=== PATIENT | female | born 1970 | race African-American/Black ===

== ENCOUNTER 2020-05-12 13:13 | Outpatient (CLI) | payer MEDICARE, OTHER, SELFPAY ==
[2020-05-12 15:08] LABS: Basophils Absolute Auto 0.1 K/mm3 (0.0-0.1); Basophils Percent Auto 0.7 % (0.2-1.2); Eosinophils Absolute Auto 0.1 K/mm3 (0-0.3); Eosinophils Percent Auto 1.1 % (0-4.4); Hematocrit 40.7 % (37.0-47.0); Hemoglobin 12.8 g/dL (12.0-15.0); Immature Granulocyte Absolute 0.03 K/mm3 (0.00-0.031); Immature Granulocyte Percent A 0.4 % (0-0.5); Mean Corpuscular HGB Conc 31.4 g/dl (32-36); Mean Corpuscular Hemoglobin 31.1 pg (26-34); Mean Corpuscular Volume 98.8 fl (80-100); Mean Platelet Volume 10.7 fl (7.4-10.4); Monocytes Absolute Auto 0.3 K/mm3 (0.1-0.6); Monocytes Percent Auto 4.1 % (2.6-8.5); Neutrophils Absolute Auto 3.1 K/mm3 (1.3-6.7); Neutrophils Percent Auto 42.7 % (45.5-73.1); Platelet Count Result 270 k/mm3 (150-375); Red Blood Count 4.12 M/mm3 (4.2-5.4); Red Cell Distribution Width 13.1 % (11.5-14.5); White Blood Count 7.3 K/mm3 (4.5-10.0)
[2020-05-12 15:14] LABS: Iron 145 ug/dL (37-170)
[2020-05-12 15:16] LABS: Alanine Aminotransferase 9 U/L (4-35); Albumin Level 3.9 g/dL (3.5-5.1); Alkaline Phosphatase 92 U/L (38-126); Anion Gap 3 mmol/L (8-16); Aspartate Amino Transferase 19 U/L (14-36); Bilirubin,Total 0.4 mg/dL (0.2-1.3); Blood Urea Nitrogen 12 mg/dL (7-17); Calcium 9.1 mg/dL (8.4-10.2); Carbon Dioxide 30 mmol/L (22-30); Chloride 107 mmol/L (98-107); Estimated Glomerular Filt Rate > 60; Glucose 97 mg/dL (65-105); Sodium 140 mmol/L (137-145)
[2020-05-12 15:24] LABS: Percent Iron Saturation 47 % (20-50)
[2020-05-12 16:22] LABS: Folic Acid 7.4 ng/mL (2.76->20)
== END 2020-05-12 13:14 | disposition home or self-care (01) ==
LOC: ANHLAB 13:17
PROVIDERS: PCP Emergency Medicine; Visit Provider Internal Medicine Hematology & Oncology
DX: D64.9 Anemia, unspecified (principal)
CPT/HCPCS: 36415; 80053; 82607; 82728; 82746; 83540; 83550; 84443; 85025

== ENCOUNTER → 2021-09-21 11:37 | Outpatient (CLI) | payer MEDICARE, SELFPAY ==
--- NOTE | ~2021-09-21 | XR_ITS ---
XR hip RT min 2V 09/21/2021 12:18 INDICATION: Right inguinal pain PROCEDURE: 3 views right hip COMPARISON: 07/23/2009 FINDINGS: Fracture, dislocation or subluxation is not identified. No significant joint space narrowin g. The soft tissues appear within normal limits. No foreign bodies are identified. IMPRESSION: 1: No significant bone or joint abnormality. Reviewed, dictated and finalized at location A.
--- NOTE | ~2021-09-21 | XR_ITS ---
XR femur RT min 2V DATE: 09/21/2021 12:18 INDICATION: Right inguinal pain TECHNIQUE: AP and lateral views of the femur COMPARISON: None FINDINGS: Mild right hip osteoarthritis. Mild tricompartment osteoarthritis at the right knee joint. Mild superior pole patellar enthesopathy at the quadriceps tendon insertion. No fracture or dislocation, periosteal reaction or bone destruction. IMPRESSION: Mild right hip and knee osteoarthritis Reviewed, dictated and finalized at location B.
--- NOTE | ~2021-09-21 | XR_ITS ---
XR lumbar spine 2-3V DATE: 09/21/2021 12:18 INDICATION: Right inguinal pain TECHNIQUE: AP, lateral, coned lateral lumbosacral views COMPARISON: None FINDINGS: Normal alignment of the lumbar spine except for slight anterolisthesis at L4-5 due to degen erative change at the apophyseal joints. There is bilateral severe degenerative disc disease at L5-S1 and mild to moderate degenerative disc d isease at the remainder of the lumbar spine. Included lower thoracic and lumbar pedicles are intact. No fracture or bone destruction. The sacroili ac joints are intact. IMPRESSION: Multilevel degenerative disc disease, most prominent at L5-S1 Degenerative changes apophyseal joints with associated minimal grade 1 anterolisthesis at L4-5 Reviewed, dictated and finalized at location B. IMPRESSION: Multilevel degenerative disc disease, most prominent at L5-S1 Degenerative changes apophyseal joints with associated minimal grade 1 anteroli sthesis at L4-5
== END ==
PROVIDERS: PCP Emergency Medicine; Visit Provider Emergency Medicine
DX: R10.31 Right lower quadrant pain (principal); M51.37 Other intervertebral disc degeneration, lumbosacral region; M43.16 Spondylolisthesis, lumbar region; M16.11 Unilateral primary osteoarthritis, right hip; M17.11 Unilateral primary osteoarthritis, right knee
CPT/HCPCS: 72100; 73502; 73552

== ENCOUNTER 2022-05-22 18:39 | Emergency (ER) | payer MEDICARE, MEDICAID, SELFPAY ==
--- NOTE | 2022-05-22 18:52 | ED.DENTAL ---
HPI - Dental/Oral General Chief complaint: Dental/Oral Stated complaint: Dental Pain Source: patient and RN notes reviewed History of Present Illness HPI Narrative: 52 yo F presents to urgent care with complaints of left lower jaw swelling and pain. Pt states she began feeling something in the area a few days ago but this morning woke up with worsening pain and swelling. pt states the swelling went down significantly today but still has some. Pt reports gargling with peroxide and warm water. Reports teeth issues in the area. Denies any fevers, chills, chest pain, shortness of breath, or vomiting. Some parts of this dictation were generated by voice recognition software and may contain typographical and/or grammatical inaccuracies. Related Data Home Medications Medication Instructions Recorded Confirmed diclofenac sodium 05/22/22 05/22/22 losartan 50 mg tablet mg 05/22/22 rosuvastatin 10 mg tablet mg 05/22/22 topiramate 25 mg tablet mg 05/22/22 Allergies Allergy/AdvReac Type Severity Reaction Status Date / Time Contrast Media Allergy Intermediate Swelling Uncoded 05/22/22 18:58 Review of Systems Review of Systems: Pertinent positives and pertinent negatives per HPI. PMFSH Comments At the time of my signature, I reviewed and agree with the nursing past medical, surgical, social, and family history. There is no relevant family history pertinent to the patient complaint. Exam Narrative: GENERAL: This is a well-nourished, well-developed patient, in no apparent distress. HEAD: normocephalic, atraumatic. EYES: Sclera clear/white. Vision is grossly intact. EARS: External ears normal, auditory canals clear and without drainage. Hearing grossly intact. NOSE: External nose normal with no obvious nasal discharge, nares without redness, no rhinorrhea. THROAT: Mucous membranes moist, posterior pharynx clear. MOUTH: Left lower gum swelling. Left lower jaw swelling. NECK: Neck supple, non-tender without lymphadenopathy, masses or thyromegaly. CARDIOVASCULAR: Regular rate RESPIRATORY: No respiratory distress. SKIN: warm, intact with no suspicious lesions or rash, good texture and turgor. NEURO: awake, alert, and oriented to person, place and time. There were no obvious focal neurologic abnormalities. Course Course Level of Care: Express Care Visit Vital Signs Vital signs: Vital Signs Temperature 97.9 F 05/22/22 18:53 Pulse Rate 80 05/22/22 18:53 Respiratory Rate 14 05/22/22 18:53 Blood Pressure 136/79 05/22/22 18:53 Pulse Oximetry 100 05/22/22 18:53 Oxygen Delivery Room Air 05/22/22 18:53 Temperature 97.9 F 05/22/22 18:53 Pulse Rate 80 05/22/22 18:53 Respiratory Rate 14 05/22/22 18:53 Blood Pressure 136/79 05/22/22 18:53 Pulse Oximetry 100 05/22/22 18:53 Oxygen Delivery Room Air 05/22/22 18:53 Reviewed MDM - Dental/Oral MDM Narrative Medical decision making narrative: Take antibiotic until it's gone. Brushing teeth at least twice daily with gentle flossing. Avoid temperature extremes---when you eat. Salt gargle to rinse your mouth after every meal You may apply ice to the face to reduce pain/swelling. For pain, you may take: Tylenol 650-1000mg by mouth every 4-6 hours. Do not exceed 4000mg in 24 hours. Advil (Ibuprofen) 600 mg by mouth every 6 hours. Do not exceed 2400mg in 24 hours. Also, recommend regular dental check up one-two times a year to prevent tooth decay and other periodontal disease. Follow-up with the dentist as soon as possible--see the list provided Pt was instructed to go straight to the ER with any new or worsening symptoms. Differential Diagnosis Differential diagnosis: Likely dental caries, toothache and dental abscess Critical Care Time Critical Care Time Critical Care Time: No Discharge Plan Discharge Clinical Impression: Dental abscess Patient Disposition: Home, Self-Care Condition: Stable Instruct
[2022-05-22 18:53] VITALS: BP 136/79; PULSE 80; RESP 14; TEMP 36.6; O2SAT 100
== END 2022-05-22 19:04 | disposition home or self-care (01) ==
PROVIDERS: Emergency Provider Nurse Practitioner Family; PCP Emergency Medicine
DX: K04.7 Periapical abscess without sinus (principal)
CPT/HCPCS: 99213; G0463

== ENCOUNTER 2023-10-05 15:45 | Outpatient (CLI) | payer MEDICARE, MEDICAID, SELFPAY ==
[2023-10-05 16:09] LABS: Basophils Percent Auto 0.5 % (0.2-1.2); Eosinophils Absolute Auto 0.1 K/mm3 (0-0.3); Eosinophils Percent Auto 1.5 % (0-4.4); Hematocrit 38.3 % (37.0-47.0); Hemoglobin 11.9 g/dL (12.0-15.0); Immature Granulocyte Absolute 0.01 K/mm3 (0.00-0.031); Immature Granulocyte Percent A 0.2 % (0-0.5); Lymphocytes Percent Auto 39.3 % (18.3-44.2); Mean Corpuscular HGB Conc 31.1 g/dl (32-36); Mean Corpuscular Hemoglobin 30.8 pg (26-34); Mean Corpuscular Volume 99.2 fl (80-100); Mean Platelet Volume 9.3 fl (7.4-10.4); Monocytes Absolute Auto 0.3 K/mm3 (0.1-0.6); Monocytes Percent Auto 4.1 % (2.6-8.5); Neutrophils Absolute Auto 3.3 K/mm3 (1.3-6.7); Neutrophils Percent Auto 54.4 % (45.5-73.1); Platelet Count Result 218 k/mm3 (150-375); Red Blood Count 3.86 M/mm3 (4.2-5.4); White Blood Count 6.1 K/mm3 (4.5-10.0)
[2023-10-05 19:54] LABS: Iron 137 ug/dL (37-170)
[2023-10-05 20:04] LABS: Percent Iron Saturation 42 % (20-50)
[2023-10-05 21:34] LABS: Alanine Aminotransferase 36 U/L (6-35); Albumin Level 4.4 g/dL (3.5-5.1); Alkaline Phosphatase 121 U/L (38-126); Anion Gap 8 mmol/L (4-12); Aspartate Amino Transferase 48 U/L (14-36); Bilirubin,Total 0.3 mg/dL (0.2-1.3); Blood Urea Nitrogen 23 mg/dL (7-17); Calcium 9.3 mg/dL (8.4-10.2); Carbon Dioxide 27 mmol/L (22-30); Chloride 107 mmol/L (98-107); Estimated Glomerular Filt Rate > 60; Glucose 82 mg/dL (65-110); Lactate Dehydrogenase 238 U/L (120-246); Sodium 142 mmol/L (137-145)
[2023-10-05 22:39] LABS: Folic Acid 7.1 ng/mL (2.76->20)
[2023-10-06 23:48] LABS: Hemoglobin 12.4 g/dL (11.7-15.5); MCV 97.5 fL (80.0-100.0); RDW 11.1 % (11.0-15.0)
[2023-10-08 03:39] LABS: Methylmalonic Acid 248 nmol/L (55-335)
[2023-10-08 13:34] LABS: Soluble Transferrin Receptor 1.14 mg/L (0.76-1.76)
== END 2023-10-05 15:46 | disposition home or self-care (01) ==
LOC: ANHLAB 15:48
PROVIDERS: Nurse Practitioner Family; PCP Emergency Medicine; Visit Provider Internal Medicine Hematology & Oncology
DX: D57.3 Sickle-cell trait (principal); D50.9 Iron deficiency anemia, unspecified
CPT/HCPCS: 36415; 80053; 82607; 82728; 82746; 83021; 83540; 83550; 83615; 83921; 84238; 85025; 85660

== ENCOUNTER 2024-05-03 13:19 | Outpatient (CLI) | payer MEDICARE, MEDICAID, SELFPAY ==
[2024-05-03 13:36] LABS: Basophils Percent Auto 0.4 % (0.2-1.2); Eosinophils Percent Auto 0.5 % (0-4.4); Hematocrit 38.7 % (37.0-47.0); Hemoglobin 12.2 g/dL (12.0-15.0); Immature Granulocyte Absolute 0.02 K/mm3 (0.00-0.031); Immature Granulocyte Percent A 0.2 % (0-0.5); Lymphocytes Absolute Auto 2.28 K/mm3 (0.9-3.2); Lymphocytes Percent Auto 27.8 % (18.3-44.2); Mean Corpuscular HGB Conc 31.5 g/dl (32-36); Mean Corpuscular Hemoglobin 31.1 pg (26-34); Mean Corpuscular Volume 98.7 fl (80-100); Monocytes Absolute Auto 0.3 K/mm3 (0.1-0.6); Monocytes Percent Auto 3.5 % (2.6-8.5); Neutrophils Absolute Auto 5.5 K/mm3 (1.3-6.7); Neutrophils Percent Auto 67.6 % (45.5-73.1); Platelet Count Result 273 k/mm3 (150-375); Red Blood Count 3.92 M/mm3 (4.2-5.4); Red Cell Distribution Width 13.3 % (11.5-14.5); White Blood Count 8.2 K/mm3 (4.5-10.0)
--- OUTSIDE RECORDS SUMMARY | 2024-05-03 14:55 | XMS_ITS | Encounter Summary ---
Author Organization [facility] Care Team Providers Care Ux Developer Name Role Phone Fabrizio BINGHAM MD, Manolo Villaseñor Primary Care [facility] er Von Long MD Primary Care Provider [phone] Keke Guzman RN Unavailable Unavailab Alexsandra Serra RN Unavailable Dorcas kristailadaniel Dinh II, MD, John Marshall Primary Care [facility] er Alexsandra Orozco RN Unavailable Dorcas Von Branham MD Primary Care Provider [phone] Encounter Details Date Type Department Care Team (Latest Contact Info) Description 04/21/2015 Orders Only [facility]INCON[facility] ProviderRoberth MD [address] [place] [id number] Social History Tobacco Use Types Packs/Day Years Used Date Smoking Tobacco: Never Assessed Comments Unknown Sex and Gender Information Value Date Recorded Sex Assigned at Not on file Legal Sex Female 1:27 PM [employer]ATCH[employer] WORK[employer] Gender Identity Not on file Sexual Orientation Not on file documented as of this encounter Plan of Treatment Not on file documented as of this encounter Procedures Procedure Name Priority Date/Time Associated Diagnosis Comments SCAN - LABS 12/24/2015 12:00 AM CDT CARDIOLOGY REPORT 12/24/2015 12: 00 AM CDT documented in this encounter Results * SCAN - LABS (12/24/2015 12:00 AM CDT) Narrative 12/24/2015 12:00 AM CDT Ordered by an unspecified provider. us Historical Provider Final Res ult * CARDIOLOGY REPORT (12/24/2015 12:00 AM CDT) Anatomical Region Laterality Modality Other Narrative 12/24/2015 12:00 AM CDT Ordered by an unspecified provider. us Historical Provider [facility] PROCE LAWANDA Final Result documented in this encounter Visit Diagnoses Not on filedocumented in this encounter Care Teams Ux Developer Relationship Specialty Start Date End Date Manolo Dinh II, MD PCP - General 05/21/16 09/20/16 Von Long MD PCP - General 09/21/16 06/19/17 Manolo Dinh II, MD PCP - General 06/20/17 02/08/19 Von Long MD PCP - General 02/09/19 Keke Guzman RN Registered Nurse 02/10/17 Alexsandra Orozco, RN Registered Nurse 05/11/17 Alexsandra Orozco, RN Registered Nurse 08/09/17 documented as of this encounter
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
--- OUTSIDE RECORDS SUMMARY | 2024-05-03 14:55 | XMS_ITS | Patient Health Summary ---
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 guidance, a 22-gauge 3.5 spinal needle was inserted into the space posterior to the right C2-3 facet. Once the needle was against the bone extravascular positioning was confirmed by aspiration. Then 3 mL solution was injected into the joint space containing 2 mL of Betamethasone and 1 mL of Bupivacaine 0.75%. The needle was removed, and a sterile dressing was applied. The right greater and lesser occipital nerves were identified by palpation and 1 mL of solution containing a mixture of betamethasone and bupivacaine 0.75% were injected around both these nerves with a 25-gauge needle. The left greater and lesser occipital nerves were identified by palpation and 1 mL of solution containing a mixture of betamethasone and bupivacaine 0.75% were injected around both these nerves with a 25-gauge needle. The patient tolerated the procedure well. The patient was transferred to the holding area in stable condition. Procedure Note Karo Christiansen MD - 05/25/2017 History: 47-year-old female with history of bilateral occipital headaches.Here for injection of bilateral C2-3 facet joints, bilateral greater andlesser occipital nerves. Operators: 1. Dr. Karo Christiansen, Attending Physician 2. Dr. Simpson, IR fellow Anesthesia: Local anesthesia - 5 mL of 1% Lidocaine. Procedure: 1. Fluoroscopic-guided therapeutic facet injection at right C2-3. 2. Fluoroscopic-guided therapeutic facet injection at left C2-3. 3. Bilateral therapeutic greater occipital nerve injection. 4. Bilateral therapeutic left occipital nerve injection. Start time: 3:18 PM End Time: 3:50 PM Fluoroscopy time: 5 minutes Contrast: None. Procedure in detail: The procedure and possible complications wereexplained to the patient in detail, and informed consent was obtained. The patient was placed prone on the angiographic table. A energy efficiency finance manager film ofthe lateral cervical spine was obtained, it demonstrated at least partialfusion of the C2-3 facet joints. An appropriate percutaneous entry sitewas marked on the skin. The skin around the region was prepped and draped in a sterile fashion. Localanesthesia was provided by the injection with 1% Lidocaine. Under intermittent fluoroscopic guidance, a 22-gauge 3.5 spinal needlewas inserted into the space posterior to the left C2-3 facet. Once theneedle was against the bone extravascular positioning was confirmed byaspiration. Then 3 mL solution was injected into the joint space containing 2 mL of Betamethasone and 1 mL ofBupivacaine 0.75%. The needle was removed, and a sterile dressing wasapplied. Under intermittent fluoroscopic guidance, a 22-gauge 3.5 spinal needlewas inserted into the space posterior to the right C2-3 facet. Once theneedle was against the bone extravascular positioning was confirmed byaspiration. Then 3 mL solution was injected into the joint space containing 2 mL of Betamethasone and 1 mL ofBupivacaine 0.75%. The needle was removed, and a sterile dressing wasapplied. The right greater and lesser occipital nerves were identified by palpationand 1 mL of solution containing a mixture of betamethasone and bupivacaine0.75% were injected around both these nerves with a 25-gauge needle. The left greater and lesser occipital nerves were identified by palpationand 1 mL of solution containing a mixture of betamethasone and bupivacaine0.75% were injected around both these nerves with a 25-gauge needle. The patient tolerated the procedure well. [facility] IMPRESSION IMPRESSION: Successful therapeutic facet injection of the right and leftC2-3 facet joint under fluoroscopic guidance, as described above. Successful therapeutic injection of the bilateral greater and lesseroccipital nerve, as described above. Report dictated by Kenroy Simpson M.D., MPH (IR fellow). Dr. Karo Khalil, performed/supervised the entire procedure. This report was approved by Kenroy Simpson M.D. on 04/18/20174:[address] KARO Khalil M.D. have personally reviewed and interpreted thisexamination/study. This report was electronically signed by KARO CHRISTIANSEN M.D. on 04/29/20173:20 PM . Estella Best MD IR ORDERABLES * HCG URINE QUALITATIVE - POCT (IP) [facility] (04/18/2017 1:52 PM CANE FURNITURE MAKER) Only the most recent of2 resultswithin the time period is included. NEGATIVE [facility] ([place]) Comment:Template Maker: NEEL BOBBY 04/18/2017 1:52 PM CANE FURNITURE MAKER Estella Best MD LAB - POINT OF CARE ORDERABLES [facility] ([place]) * XR LUMBAR SPINE 4VW OR MORE (04/04/2017 3:41 PM CANE FURNITURE MAKER) Anatomical Region Laterality Modality Spine Other Impressions 04/05/2017 6:17 PM CANE FURNITURE MAKER IMPRESSION: Normal cervical and lumbar spine. Dictated by Shirley Mendez MD (radiology special procedure tech). This report was approved by Shirley Mendez on 04/05/2017 3:11 PM . I, Dr. DAPHNIE AYON M.D. have personally reviewed and interpreted this examination/study. This report was electronically signed by DAPHNIE AYON M.D. on 04/05/2017 6:17 PM . Narrative 04/05/2017 6:17 PM CANE FURNITURE MAKER EXAMINATION: 1. Cervical spine, 4 views 2. Lumbar spine, 4 views HISTORY: back pain FINDINGS: No prior study is available for comparison at the time of this dictation. Cervical spine: The vertebral bodies are normally aligned. No acute fracture or compression deformity is identified. The intervertebral disc spaces are maintained. The facet joints are intact. The predental interval and prevertebral soft tissues are normal. Bone density and texture are normal. Lumbar spine: The vertebral bodies are normally aligned. No acute fracture or compression deformity is identified. The intervertebral disc spaces are maintained. The facet joints are intact. Sacroiliac joints are normal. Procedure Note Daphnie Ayon MD - 05/25/2017 EXAMINATION: 1. Cervical spine, 4 views 2. Lumbar spine, 4 views HISTORY: back pain FINDINGS: No prior study is available for comparison at the time of thisdictation. Cervical spine: The vertebral bodies are normally aligned. No acute fracture orcompression deformity is identified. The intervertebral disc spaces aremaintained. The facet joints are intact. The predental interval andprevertebral soft tissues are normal. Bone density and texture are normal. Lumbar spine: The vertebral bodies are normally aligned. No acute fracture orcompression deformity is identified. The intervertebral disc spaces aremaintained. The facet joints are intact. Sacroiliac joints are normal. IMPRESSION IMPRESSION: Normal cervical and lumbar spine. Dictated by Shirley Mendez MD (radiology special procedure tech). This report was approved by Shirley Mendez on 04/05/2017 3:[address] DAPHNIE Khalil M.D. have personally reviewed and interpreted thisexamination/study. This report was electronically signed by DAPHNIE AYON M.D. on 04/05/20176:17 PM . Arlin Alberts PA-C DIAGNOSTIC ERENDIRA GING ORDERABLES * XR CERVICAL SPINE 4 OR 5VW (04/04/2017 3:41 PM CANE FURNITURE MAKER) Anatomical Region Laterality Modality Spine Other Impressions 04/05/2017 6:17 PM CANE FURNITURE MAKER IMPRESSION: Normal cervical and lumbar spine. Dictated by Shirley Mendez MD (radiology special procedure tech). This report was approved by Shirley Mendez on 04/05/2017 3:[address] DAPHNIE Khalil M.D. have personally reviewed and interpreted this examination/study. This report was electronically signed by DAPHNIE AYON M.D. on 04/05/2017 6:17 PM . Narrative 04/05/2017 6:17 PM CANE FURNITURE MAKER EXAMINATION: 1. Cervical spine, 4 views 2. Lumbar spine, 4 views HISTORY: back pain FINDINGS: No prior study is available for comparison at the time of this dictation. Cervical spine: The vertebral bodies are normally aligned. No acute fracture or compression deformity is identified. The intervertebral disc spaces are maintained. The facet joints are intact. The predental interval and prevertebral soft tissues are normal. Bone density and texture are normal. Lumbar spine: The vertebral bodies are normally aligned. No acute fracture or compression deformity is identified. The intervertebral disc spaces are maintained. The facet joints are intact. Sacroiliac joints are normal. Procedure Note Daphnie Ayon MD - 05/25/2017 EXAMINATION: 1. Cervical spine, 4 views 2. Lumbar spine, 4 views HISTORY: back pain FINDINGS: No prior study is available for comparison at the time of thisdictation. Cervical spine: The vertebral bodies are normally aligned. No acute fracture orcompression deformity is identified. The intervertebral disc spaces aremaintained. The facet joints are intact. The predental interval andprevertebral soft tissues are normal. Bone density and texture are normal. Lumbar spine: The vertebral bodies are normally aligned. No acute fracture orcompression deformity is identified. The intervertebral disc spaces aremaintained. The facet joints are intact. Sacroiliac joints are normal. IMPRESSION IMPRESSION: Normal cervical and lumbar spine. Dictated by Shirley Mendez MD (radiology special procedure tech). This report was approved by Shirley Mendez on 04/05/2017 3:11 PM . I, Dr. DAPHNIE AYON M.D. have personally reviewed and interpreted thisexamination/study. This report was electronically signed by DAPHNIE AYON M.D. on 04/05/20176:17 PM . Arlin Alberts PA-C DIAGNOSTIC ERENDIR[facility] GING ORDERABLES * METHYLMALONIC ACID BLOOD (10/26/2016 12:41 PM CDT) Methylmalonic Acid 220 0 - 378 nmol/L [facility] ([place]) Blood specimen (specimen) BLOOD SPECIMEN / Unknown 10/26/2016 12:41 PM CDT 10/26/2016 1:32 PM CDT Narrative [facility] - 10/30/2016 9:12 AM CDT Performed at: [address] [place] [id number] Family Law Paralegal: Darrick Marroquin MD, Phone: [phone] Tim Morocho MD LAB - CHEMISTRY ROBERTA PAZ [facility] (BEAKER) * HOMOCYSTEINE BLOOD QUANTITATIVE (10/26/2016 12:41 PM CDT) Pathologist [facility] Homocysteine 10.9 4.4 - 16.2 umol/L [facility] Blood specimen (specimen) BLOOD SPECIMEN / Unknown 10/26/2016 12:41 PM CDT 10/26/2016 1:15 PM CDT Tim Morocho MD LAB - CHEMISTRY ROBERTA PAZ Performing Organization Address City/[facility]/ZIP Co de Phone Number [address] [phone] * HEMOGLOBIN ELECTROPHORESIS (09/14/2016 11:30 AM CDT) [facility] Interpretation Hemoglobin Pattern Normal Pattern Normal Pattern [facility] Comment: Hemoglobin (Hb) electrophoresis at alkaline pH shows two Hb bands with electrophoretic mobilities corresponding to HbA and HbA2. No abnormal hemoglobins detected. One or two gene deletion alpha thalassemia cannot be excluded since these conditions are not associated with abnormal findings on routine hemoglobin electrophoresis and except for mild microcytosis, are generally not associated with other hematologic abnormalities. These results are confirmed by acid gel electrophoresis. Eleno Jeffery M.D. *The electrophoresis pattern and the interpretation have been reviewed and verified by the teaching physician. Hemoglobin A 97.9 97.1 - 99.1 % [facility] Hemoglobin A2 2.1 0.9 - 2.9 % [facility] Blood specimen (specimen) 09/14/2016 11:30 AM CDT 09/14/2016 11:51 AM CDT Tim Morocho MD LAB - CHEMISTRY ROBERTA PAZ Performing Organization Address City/[facility]/ZIP Co de Phone Number [address] [phone] * (ABNORMAL) SOLUBLE TRANSFERRIN RECEPTOR (09/14/2016 11:30 AM CDT) Pathologist [facility] Soluble Transferrin Receptor 28.4(H) 12.2 - 27.3 nmol/L [facility] ([place]) Blood specimen (specimen) BLOOD SPECIMEN / Unknown 09/14/2016 11:30 AM CDT 09/14/2016 11:52 AM CDT Narrative [facility] ([place]) - 09/16/2016 3:16 PM CDT Performed at: - [address] [id number] Family Law Paralegal: Darrick Marroquin MD, Phone: [phone] Tim Morocho MD LAB - CHEMISTRY ROBERTA PAZ [facility] ([place]) * VALDEZ DIRECT (09/14/2016 11:30 AM CDT) Pathologist [facility] Direct Valdez ([place]IS[place]) NEG [facility] BLOOD BANK LAB Blood specimen (specimen) 09/14/2016 11:30 AM CDT 09/14/2016 11:56 AM CDT Tim Morocho MD LAB - BLOOD BANK ORD NIC Performing Organization Address [facility] Co de Phone Number [facility] BLOOD BANK LAB [address] [place] [address] * (ABNORMAL) RETIC COUNT (09/14/2016 11:30 AM CDT) Pathologist [facility] Reticulocyte % 2.6(H) 0.4 - 2.5 % [facility] Reticulocyte Absolute 0.10 0.02 - 0.13 10 6/uL [facility] Blood specimen (specimen) BLOOD SPECIMEN / Unknown 09/14/2016 11:30 AM CDT 09/14/2016 11:39 AM CDT Tim Morocho MD LAB - HEMATOLOGY ORD NIC Performing Organization Address [facility]/ZIP Co de Phone Number [address] [phone] * LDH BLOOD (09/14/2016 11:30 AM CDT) Pathologist [facility] LDH Total 222 125 - 243 Units/L [facility] Blood specimen (specimen) BLOOD SPECIMEN / Unknown 09/14/2016 11:30 AM CDT 09/14/2016 11:52 AM CDT Tim Morocho MD LAB - CHEMISTRY ROBERTA PAZ [address] [phone] Care Teams Backend Java Developer Relationship Specialty Start Date End Date Von Long MD [address] [place] [id number] PCP - General 04/10/17
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
--- OUTSIDE RECORDS SUMMARY | 2024-05-03 14:55 | XMS_ITS | Referral Summary ---
Author Organization [facility] Address [address] [place] [address] Care Team Providers Care Bass String Winder Name Role Phone Von Long MD Primary Care Provider [phone] Source Comments [facility],non-owned Affiliates and Associated Physician Practices is amultiple site organization consisting of ambulatory clinics and hospital sitesin [place] and [place]. This disclosure is being madepursuant to the Care Everywhere program and may not contain all information available regarding this patient. Last updated 17.[facility] [employer] Allergies Active Allergy Reactions Criticality Noted Date [...] 5 04/07/2018 Active vitamin D, ergocalciferol, (DRISDOL) 50497 UNITS capsule 2,000 Units 0 04/01/2018 Active [...] Administration Dates Next Due INFLUENZA VACCINE 11/30/2018 Social History Tobacco Use Types Packs/Day Years [...] Comments Blood Pressure 148/95 03/02/2019 12:55 PM PREMIUM AUDITOR Pulse 76 03/02/2019 12:55 PM PREMIUM AUDITOR Temperature 37 C (98.6 F) 03/02/2019 12:55 PM PREMIUM AUDITOR Respiratory Rate 18 07/02/2017 4:29 PM CDT Oxygen Saturation 96% 03/02/2019 12:55 PM PREMIUM AUDITOR Inhaled Oxygen Concentration - - Weight 119 kg (262 lb 6.4 oz) 03/02/2019 12:55 P M PREMIUM AUDITOR Height 160 cm (5' 3 ) 03/02/2019 12:55 PM PREMIUM AUDITOR Body Mass Index 46.48 03/02/2019 12:55 PM PREMIUM AUDITOR Functional Status Functional Status Response Date of Assess ment Is person deaf or have serious hearing difficult y? No 07/01/2017 Is person blind or have serious difficulty seein g? No 07/01/2017 Does person have serious dif ficulty walking/climbing stairs? No 07/01/2017 Does person have difficulty dressing/bathing? No 07/01/2017 Does person have difficulty doing errands alone? No 07/01/2017 Cognitive Status Response Date of Assessm ent Does person have difficulty concentrating/remembering/making decisions? No 07/01/2017 Plan of Treatment Not on file Procedures Procedure Name Priority Date/Time Associated Diagnosis Comments HEMOGLOBIN A1C Routine 07/02/2017 5:26 AM CDT from Last 3 Months or Most Recently Relevant to Health Maintenance Results * HEMOGLOBIN A1C (07/02/2017 5:26 AM CDT) Hemoglobin A1c 5.9 4.4 - 6.3 % 07/02/2017 1:05 PM CDT [facility] Estimated Average Glucose 123 mg/dL 07/02/2017 1:05 PM CDT [facility] Comment: HbA1c Interpretation: Treatment target values recommended by ADA and other clinical organizations should be used to evaluate metabolic control in patients. Treatment Target Values: Normal : < 5.7% Pre-diabetes: 5.7-6.4% Diabetes: Equal to or greater than 6.5% Reference: [place] Diabetes Association Standards of Care in Diabetes -2014 In patients 70 years and older consider HbA1c target range of 7.0-7.5% Reference: Diabetes Mellitus in Older People: Position Statement on behalf of the International Association of Gerontology and Geriatrics (IAGG), the Diabetes Working Democrat for Older People (EDWPOP), and the International Task Force of Experts in Diabetes. Leonid Youssef, et al. J [place] Citizen Medical Directors Association. 2012 Test results diagnostic [...] Valdivia MD LAB - CHEMISTRY ORD ERABLES [address] [phone] from Last 3 Months or Most Recently Relevant to Health Maintenance Administered Medications Advance Directives * Full Code (Latest Code Status on File) Date Activated Date Inactivated Comments 07/01/2017 8:02 PM 07/02/2017 9:07 PM Care Teams Bass String Winder Relationship Specialty Start Date End Date Von Long MD [address] [facility] [address] [place] [address] PCP - General 04/10/17
--- OUTSIDE RECORDS SUMMARY | 2024-05-03 14:55 | XMS_ITS | Encounter Summary ---
Author Organization [facility] Facility Care Team Providers Care Handy Worker Name Role Phone Von Long MD Primary Care Provider [phone] Keke Guzman RN Unavailable Unavailab Alexsandra Serra RN Unavailable Dorcas vailable Fabrizio BINGHAM MD, Manolo Villaseñor Primary Care Provid er Alexsandra Orozco RN Unavailable Dorcas vailable Von Long MD Primary Care Provider Encounter Details Date Type Department Care Team (Latest Contact Info) Description 01/24/2017 Orders Only [facility] CLINCONV ProviderRoberth MD [address] [place], [place] [id number] Social History Tobacco Use Types Packs/Day Years Used Date Smoking Tobacco: Never Assessed Comments Unknown Sex and Gender Information Value Date Recorded Sex Assigned at Not on file Legal Sex Female 1:27 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 us Historical Provider Final Res ult documented in this encounter Visit Diagnoses Not on filedocumented in this encounter Care Teams Handy Worker Relationship Specialty Start Date End Date Von Long MD PCP - General 09/21/16 06/19/17 Manolo Dinh II, MD PCP - General 06/20/17 02/08/19 Von Long MD PCP - General 02/09/19 Keke Guzman, RN Registered Nurse 02/10/17 Alexsandra Orozco, RN Registered Nurse 05/11/17 Alexsandra Orozco, RN Registered Nurse 08/09/17 documented as of this encounter
--- OUTSIDE RECORDS SUMMARY | 2024-05-03 14:55 | XMS_ITS | Encounter Summary ---
Author Organization [facility] Address [address] [place] [address] Care Team Providers Care Medical Support Specialist Name Role Phone Von Long MD Primary Care Provider [phone] Encounter Details Date Type Department Care Team (Late st Contact Info) Description 05/01/2024 External Device Data [facility] ABSTRACTION Provider, Abstract NO ADDRESS ON FILE Social History Tobacco Use Types Packs/Day Years Used Date Smoking Tobacco: Former Cigarettes 0.5 2 Q uit: 10/04/2008 Smokeless Tobacco: Never Alcohol Use Standard Drinks/Week Comments Yes 0 (1 standard drink = 0.6 oz pur e alcohol) occcasional Comments Unknown Sex and Gender Information Value Date Recorded Sex Assigned at Not on file 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 Gender Identity Not on file Sexual Orientation Not on file documented as of this encounter Plan of Treatment Upcoming Encounters Date Type Department Care Team (Late st Contact Info) Description 05/09/2024 2:00 PM CDT Office Visit [facility] Oncology and Hematology - [place] [address] [place] [address] [address] [place] [address] Dirk Chapin MD [address] [facility] [address] [place] [address] documented as of this encounter Visit Diagnoses Not on filedocumented in this encounter Care Teams Medical Support Specialist Relationship Specialty Start Date End Date Von Long MD [address] [place] [address] 3 [place] [phone] PCP - General Emergency Medicine 05/09/20 documented as of this encounter
--- OUTSIDE RECORDS SUMMARY | 2024-05-03 14:55 | XMS_ITS | Clinical Summary ---
Author Organization [facility] Address [address] [place] [address] Care Team Providers Care Hygiene Teacher Name Role Phone Von Long MD Primary Care Provider [phone] Allergies Active Allergy Reactions Criticality Noted Date Comments Iodinated Contrast Media Hives,Itching High 05/10/19 21 Medications budesonide-form oteroL (SYMBICORT) 160-4.5 mcg/actuation HFA Aerosol Inhaler Take 2 Puffs by inhalation 2 times daily. Active ibuprofen (ADVIL;MOTRIN) 100 mg/5 mL suspension Take by mouth every 6 hours as needed for Pain, Mild. Active ondansetron (ZOFRAN) 24 mg Tablet Take 8 mg by mouth every 8 hours as needed for Nausea/Emesis. Active aspirin (TANIA CHEWABLE) 81 mg Tablet, Chewable Take 81 mg by mouth daily. Active losartan (COZAAR) 100 mg tablet Take 1 Tablet by mouth daily. 3 Active Phentermine 15 mg Capsule Take 1 Capsule by mouth daily. 1 Active rosuvastatin (CRESTOR) 20 mg tablet Take 20 mg by mouth daily. 4 Active topiramate (TOPAMAX) 50 mg tablet Take 1 Tablet by mouth daily. Active diclofenac sodium EC (VOLTAREN) 25 mg Tablet, Delayed Release (E.C.) Take 25 mg by mouth 2 times daily. Active Active Problems Problem Noted Date Diagnosed Date Iron deficiency anemia 05/09/2020 Encounters Date Type Department Care Team Description 05/01/2024 External Device Data STL ABSTRACTION Provider, Abstract 05/01/2024 External Device Data STL ABSTRACTION Provider, Abstract 04/28/2024 External Device Data STL ABSTRACTION Provider, Abstract 04/27/2024 External Device Data STL ABSTRACTION Provider, Abstract 04/24/2024 External Device Data STL ABSTRACTION Provider, Abstract 04/10/2024 External Device Data STL ABSTRACTION Provider, Abstract 03/27/2024 External Device Data STL ABSTRACTION Provider, Abstract 03/14/2024 External Device Data STL ABSTRACTION Provider, Abstract 03/14/2024 External Device Data STL ABSTRACTION Provider, Abstract from Last 3 Months Family History Medical History Relation Name Comments Diabetes Brother Lung Cancer Father Diabetes Mother Heart Disease Mother Breast Cancer Sister 1 Relation Name Status Comments Brother Alive Daughter Alive Father Mother Sister 1 Alive Sister 2 Alive Social History Tobacco Use Types Packs/Day Years Used Date Smoking Tobacco: Former Cigarettes 0.5 2 Q uit: 10/04/2008 Smokeless Tobacco: Never Alcohol Use Standard Drinks/Week Comments Yes 0 (1 standard drink = 0.6 oz pur e alcohol) occcasional Comments Unknown Sex and Gender Information Value Date Recorded Sex Assigned at Not on file 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 Gender Identity Not on file Sexual Orientation Not on file Last Filed Vital Signs Vital Sign Reading Time Taken Comments Blood Pressure 137/88 10/05/2023 3:06 PM CDT Pulse 67 10/05/2023 3:06 PM CDT Temperature 36.4 C (97.6 F) 10/05/2023 3:06 PM CDT Respiratory Rate - - Oxygen Saturation 96% 10/05/2023 3:06 PM CDT Inhaled Oxygen Concentration - - Weight 98 kg (216 lb) 10/05/2023 3:06 PM CDT Height 160 cm (5' 3 ) 10/05/2023 3:06 PM CDT Body Mass Index 38.26 10/05/2023 3:06 PM CDT Plan of Treatment Upcoming Encounters Date Type Department Care Team (Late st Contact Info) Description 05/09/2024 2:00 PM CDT Office Visit [facility] Oncology and Hematology - [place] [address] [place] [address] Dirk Chapin MD [address] [place] [address] Health Maintenance Due Date Last Done Comments DIABETES ANNUAL FOOT EXAM 02/25/1986 DIABETES ANNUAL RETINAL EXAM 02/25/1986 DIABETES MICROALBUMIN ANNUAL SCREEN 02/25/1986 LDL CHOLESTEROL ANNUAL 02/25/1986 HEPATITIS B VACCINES (1 of 3 - 19+ 3-dose series) 02/25/1987 CERVICAL CANCER SCREENING 02/25/1998 COLORECTAL SCREENING 02/25/2013 Colorectal Cancer Screening 02/25/2013 FIT-DNA Q 3 years 02/25/2013 FIT/FOBT Q 1 year 02/25/2013 Flex Sig/CT Colonography Q 5 years 02/25/2013 DIABETES HBA1C Q 6 MONTHS 01/02/2018 07/02/2017 ZOSTER VACCINE (1 of 2) 02/25/2018 INFLUENZA VACCINE (#1) 2023 , 02/05/2021, 12/19/2018, Additional history exists Medicare Advantage ([place]) Preventative Visit/Annual Wellness Visit 02/22/2024 05/13/2022, 05/11/2021, 05/07/2020, Additional history exists BREAST CANCER SCREENING 09/05/2024 09/06/19 24, 08/20/2022, 08/03/2021, Additional history exists DTAP/TDAP/TD VACCINES (2 - T d or Tdap) 06/06/2029 06/07/2019 Insurance [place] [address] Care Teams Hygiene Teacher Relationship Specialty Start Date End Date Von Long MD [address] [place] [phone] PCP - General Emergency Medicine 05/09/20
--- OUTSIDE RECORDS SUMMARY | 2024-05-03 14:55 | XMS_ITS | Encounter Summary ---
Author Organization [facility] Facility Care Team Providers Care Packaging Machine Operator Name Role Phone Fabrizio BINGHAM MD, Manolo Villaseñor Primary Care Provid er Von Long MD Primary Care Provider [phone] Keke Guzman RN Unavailable Unavailab Alexsandra Serra RN Unavailable Dorcas kristailadaniel Dinh II, MD, John Marshall Primary Care [facility] er Alexsandra Orozco RN Unavailable Dorcas Von Branham MD Primary Care Provider [phone] Encounter Details Date Type Department Care Team (Latest Contact Info) Description 12/04/2011 Orders Only [facility] CLINCONV ProviderRoberth MD [address] [place], [place] [id number] Social History Tobacco Use Types Packs/Day Years Used Date Smoking Tobacco: Never Assessed Comments Unknown Sex and Gender Information Value Date Recorded Sex Assigned at Not on file Legal 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 us Historical Provider [facility] MIAN WEBBER Final Result documented in this encounter Visit Diagnoses Not on filedocumented in this encounter Care Teams Packaging Machine Operator Relationship Specialty Start Date End Date Manolo [...]
--- OUTSIDE RECORDS SUMMARY | 2024-05-03 14:55 | XMS_ITS | Encounter Summary ---
Author Organization [facility] Address [address] [place] [address] Care Team Providers Care Home Sales Service Professional Name Role Phone Von Long MD Primary Care Provider [phone] Encounter Details Date Type Department Care Team [...] on file Legal Sex Female 1:[address]ERK Gender Identity Not on file Sexual Orientation Not on file documented as of this encounter Plan of Treatment Upcoming Encounters Date Type Department Care Team (Late st Contact Info) Description 05/09/2024 2:00 PM CDT Office Visit [facility] Oncology and Hematology - [place] [address] [place] [address] [facility] [address] [place] [address] Dirk Chapin MD [address] [facility] [place] [address] documented as of this encounter Visit Diagnoses Not on filedocumented in this encounter Care Teams Home Sales Service Professional Relationship Specialty Start Date End Date Von Long MD [address] [place] [address] 3 [place] [phone] PCP - General Emergency Medicine 05/09/20 documented as of this encounter
--- OUTSIDE RECORDS SUMMARY | 2024-05-03 14:55 | XMS_ITS | Encounter Summary ---
Author Organization [facility] Facility Care Team Providers Care Quality Assurance Practice Manager Name Role Phone Fabrizio BINGHAM MD, Manolo Villaseñor Primary Care Provid er Von Long MD Primary Care Provider [phone] Keke Guzman RN Unavailable Unavailab Alexsandra Serra RN Unavailable Dorcas kristailadaniel Dinh II, MD, John Marshall Primary Care [facility] er Alexsandra Orozco RN Unavailable Dorcas Von Branham MD Primary Care Provider [phone] Encounter Details Date Type Department Care Team (Latest Contact Info) Description 04/25/2015 Orders Only [facility] CLINCONV ProviderRoberth MD [address] [place] [address] Social History Tobacco Use Types Packs/Day Years Used Date Smoking Tobacco: Never Assessed Comments Unknown Sex and Gender Information Value Date Recorded Sex Assigned at Not on file 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
--- OUTSIDE RECORDS SUMMARY | 2024-05-03 14:55 | XMS_ITS | Encounter Summary ---
Author Organization [facility] Facility Care Team Providers Care Bottom Liner Name Role Phone Fabrizio BINGHAM MD, Manolo Villaseñor Primary Care Provid er Von Long MD Primary Care Provider [phone] Keke Guzman RN Unavailable Unavailab Alexsandra Serra RN Unavailable Dorcas kritsailadaniel Dinh II, MD, John Marshall Primary Care [facility] er Alexsandra Orozco RN Unavailable Dorcas Von Branham MD Primary Care Provider [phone] Encounter Details Date Type Department Care Team (Latest Contact Info) Description 01/14/2016 Orders Only [facility] CLINCONV ProviderRoberth MD [address] [place], [place] [id number] Social History Tobacco Use Types Packs/Day Years Used Date Smoking Tobacco: Never Assessed Comments Unknown Sex and Gender Information Value Date Recorded Sex Assigned at Not on file Legal Sex Female 1:27 PM IMPROVEMENT ADVISOR Gender Identity Not on file Sexual Orientation Not on file documented as of this encounter Plan of Treatment Not on file documented as of this encounter Procedures Procedure Name Priority Date/Time Associated Diagnosis Comments SCAN - LABS 01/23/2016 12:00 AM IMPROVEMENT ADVISOR documented in this encounter Results * SCAN - LABS (01/23/2016 12:00 AM IMPROVEMENT ADVISOR) Narrative 01/23/2016 12:00 AM IMPROVEMENT ADVISOR Ordered by an unspecified provider. us Historical Provider Final Res ult documented in this encounter Visit Diagnoses Not on filedocumented in this encounter Care Teams Bottom Liner Relationship Specialty Start Date End Date Manolo [...]
--- OUTSIDE RECORDS SUMMARY | 2024-05-03 14:55 | XMS_ITS | Encounter Summary ---
Author Organization [facility] Facility Care Team Providers Care User Support Analyst Name Role Phone Fabrizio BINGHAM MD, Manolo Villaseñor Primary Care Provid er Von Long MD Primary Care Provider [phone] Keke Guzman RN Unavailable Unavailab Alexsandra Serra RN Unavailable Dorcas kristailadaniel Dinh II, MD, John Marshall Primary Care [facility] er Alexsandra Orozco RN Unavailable Dorcas Von Branham MD Primary Care Provider [phone] Encounter Details Date Type Department Care Team (Latest Contact Info) Description 05/04/2015 Orders Only [facility] CLINCONV ProviderRoberth MD [address] [place] [address] Social History Tobacco Use Types Packs/Day Years Used Date Smoking Tobacco: Never Assessed Comments Unknown Sex and Gender Information Value Date Recorded Sex Assigned at Not on file Legal 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
--- OUTSIDE RECORDS SUMMARY | 2024-05-03 14:55 | XMS_ITS | Encounter Summary ---
Author Organization [facility] Facility Care Team Providers Care Mining Speculator Name Role Phone Fabrizio BINGHAM MD, Manolo Villaseñor Primary Care Provid er Von Long MD Primary Care Provider [phone] Keke Guzman RN Unavailable Unavailab Alexsandra Serra RN Unavailable Dorcas kristailadaniel Dinh II, MD, John Marshall Primary Care [facility] er Alexsandra Orozco RN Unavailable Dorcas Von Branham MD Primary Care Provider [phone] Encounter Details Date Type Department Care Team (Latest Contact Info) Description 04/30/2016 Orders Only [facility] CLINCONV ProviderRoberth MD [address] [place] [address] Social History Tobacco Use Types Packs/Day Years Used Date Smoking Tobacco: Never Assessed Comments Unknown Sex and Gender Information Value Date Recorded Sex Assigned at Not on file 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 us Historical Provider Final Res ult documented in this encounter Visit Diagnoses Not on filedocumented in this encounter Care Teams Mining Speculator Relationship Specialty Start Date End Date Manolo [...]
--- OUTSIDE RECORDS SUMMARY | 2024-05-03 14:55 | XMS_ITS | Encounter Summary ---
Author Organization [facility] Facility Care Team Providers Care Senior Software Developer Name Role Phone Von Long MD Primary Care Provider [phone] Keke Guzman RN Unavailable Unavailab Alexsandra Serra RN Unavailable Dorcas vailable Fabrizio BINGHAM MD, Manolo Villaseñor Primary Care Provid er Alexsandra Orozco RN Unavailable Dorcas vailable Von Long MD Primary Care Provider [phone] Encounter Details Date Type Department Care Team (Latest Contact Info) Description 02/02/2017 Orders Only [facility] CLINCONV ProviderRoberth MD [address] [place], [place] [id number] Social History Tobacco Use Types Packs/Day Years Used Date Smoking Tobacco: Never Assessed Comments Unknown Sex and Gender Information Value Date Recorded Sex Assigned at Not on file Legal Sex Female 1:27 PM CONE RUNNER Gender Identity Not on file Sexual Orientation Not on file documented as of this encounter Plan of Treatment Not on file documented as of this encounter Procedures Procedure Name Priority Date/Time Associated Diagnosis Comments SCAN - LABS 01/11/2018 12:00 AM CONE RUNNER documented in this encounter Results * SCAN - LABS (01/11/2018 12:00 AM CONE RUNNER) Narrative 01/11/2018 12:00 AM CONE RUNNER Ordered by an unspecified provider. us Historical Provider Final Res ult documented in this encounter Visit Diagnoses Not on filedocumented in this encounter Care Teams Senior Software Developer Relationship Specialty Start Date End Date Von Long MD PCP - General 09/21/16 06/19/17 Manolo Dinh II, MD PCP - General 06/20/17 02/08/19 Von Long MD PCP - General 02/09/19 Keke Guzman, RN Registered Nurse 02/10/17 Alexsandra Orozco, RN Registered Nurse 05/11/17 Alexsandra Orozco, RN Registered Nurse 08/09/17 documented as of this encounter
--- OUTSIDE RECORDS SUMMARY | 2024-05-03 14:55 | XMS_ITS | Encounter Summary ---
Author Organization [facility] Facility Care Team Providers Care Printing Specialist Name Role Phone Von Long MD Primary Care Provider [phone] Keke Guzman RN Unavailable Unavailab Alexsandra Serra RN Unavailable Dorcas vailable Fabrizio BINGHAM MD, Manolo Villaseñor Primary Care Provid er Alexsandra Orozco RN Unavailable Dorcas vailable Von Long MD Primary Care Provider [phone] Encounter Details Date Type Department Care Team (Latest Contact Info) Description 12/16/2016 Orders Only [facility] CLINCONV ProviderRoberth MD [address] [place], [place] [id number] Social History Tobacco Use Types Packs/Day Years Used Date Smoking Tobacco: Never Assessed Comments Unknown Sex and Gender Information Value Date Recorded Sex Assigned at Not on file Legal Sex Female 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 Historical Provider Final Res ult documented in this encounter Visit Diagnoses Not on filedocumented in this encounter Care Teams Printing Specialist Relationship Specialty Start Date End Date Von Long MD PCP - General 09/21/16 06/19/17 Manolo Dinh II, MD PCP - General 06/20/17 02/08/19 Von Long MD PCP - General 02/09/19 Keke Guzman, RN Registered Nurse 02/10/17 Alexsandra Orozco, RN Registered Nurse 05/11/17 Alexsandra Orozco, RN Registered Nurse 08/09/17 documented as of this encounter
--- OUTSIDE RECORDS SUMMARY | 2024-05-03 14:55 | XMS_ITS | Referral Summary ---
Author Organization [facility] Address [address] [place] [id number] Care Team Providers Care Science Teacher Name Role Phone Keke Guzman RN Unavailable Unavailab Alexsandra Serra RN Unavailable Dorcas vailable Alexsandra Oroczo RN Unavailable Dorcas vailable Von Long MD Primary Care Provider Encounters Date Type Department Care Team Description 03/26/2024 2:45 PM COMPLETION ENGINEER Office Visit [facility] Pulmonology [address] [place] [address] [address] [place] [address] Kelton Lockett MD Multiple pulmonary nodules (Primary Dx); Chronic cough; Cigarette nicotine dependence in remission; Moderate persistent asthma without complication; BMI 38.0-38.9,adult; Non-seasonal allergic rhinitis due to pollen; Restless legs; Personal history of nicotine dependence from Last 3 Months Allergies Active Allergy Reactions Criticality Noted Date [...] Toprol XL. Fibromyalgia 02/10/2017 02/05/2021 Morbid obesity ([facility] 05/25/2016 Overview (07/16/2016): Morbid obesity Assessment & Plan (06/25/2020 3:20 PM CDT): She was encouraged to lose weight . Emphysema, unspecified 07/08/201502/05 Nicotine dependence, unspeci fied, uncomplicated 07/08/2015 02/05/2021 Immunizations Immunization Administration Dates Next Due Influenza, Quadrivalent, Spl it, Intramuscular 01/10/2018 Influenza, Quadrivalent, Spl it, Preservative Free, Intramuscular 12/13/2022,02/05/2021,12/19/2018 Influenza, Trivalent, IM (MDV) 12/16/2016 Influenza, Trivalent, Preser vative Free, Intramuscular 11/29/2023,11/29/2014,12/04/2011 Influenza, Unspecified 11/30/2018 Pneumococcal Polysaccharide PPV23 10/28/2009 Tdap 06/07/2019 Social History Tobacco Use Types Packs/Day Years [...] on file Legal Sex Female 1:27 PM COMPLETION ENGINEER Gender Identity Not on file Sexual Orientation Not on file Last Filed Vital Signs Vital Sign Reading Time Taken Comments Blood Pressure 118/83 03/26/2024 3:06 PM COMPLETION ENGINEER Pulse 77 03/26/2024 3:06 PM COMPLETION ENGINEER Temperature 36.3 C (97.4 F) 03/26/2024 3:06 PM COMPLETION ENGINEER Respiratory Rate 20 03/26/2024 3:06 PM COMPLETION ENGINEER Oxygen Saturation 99% 03/26/2024 3:06 PM COMPLETION ENGINEER Inhaled Oxygen Concentration - - Weight 98.9 kg (218 lb) 03/26/2024 3:06 PM COMPLETION ENGINEER Height 160 cm (5' 3 ) 03/26/2024 3:06 PM COMPLETION ENGINEER Body Mass Index 38.62 03/26/2024 3:06 PM COMPLETION ENGINEER Plan of Treatment Not on file Goals Goal Patient Goal Type Associated Problems Recent Progress Patient-Stated? Author Being active Exercise Keke Mcfadden, RN Note: Patient will be more active by: Procedures Procedure Name Priority Date/Time Associated Diagnosis Comments CT LUNG CANCER SCREENING Schedule Routine, Read Routine (OP Routine) 01/17/2024 1:37 PM COMPLETION ENGINEER Personal history of nicotine dependence HIGH RISK HPV DNA DETECTION WITH GENOTYPING Routine 10/21/2023 2:00 PM CDT Well woman exam with routine gynecological exam SCREENING MAMMOGRAM BILATERAL W SLIM Schedule Routine, Read Routine (OP Routine) 09/06/2023 2:43 PM CDT Screening mammogram, encounter for TNI WITH LIPID PANEL Routine 04/30/2016 3:11 PM COMPLETION ENGINEER HEMOGLOBIN A1C Routine 10/08/2014 11:00 AM CDT from Last 3 Months or Most Recently Relevant to Health Maintenance Results * CT Lung Cancer Screening (01/17/2024 1:37 PM COMPLETION ENGINEER) Anatomical Region Laterality Modality Chest N/A Computed Tomogra phy 01/20/2024 9:11 PM COMPLETION ENGINEER Narrative 01/20/2024 9:14 PM COMPLETION ENGINEER EXAM DESCRIPTION: CT LUNG CANCER SCREENING REASON [...] Sander Vance M.D. BS T: Report ID: [id number] Reading Location: [place] [address] Procedure Note Sander Vance MD - 01/20/2024 [...] Sander Vance M.D. BS T: Report ID: [id number] Reading Location: [place] [address] Kelton Lockett MD [facility] [place] PROCEDURES Final Res ult * High Risk HPV DNA Detection with Genotyping (Molecular component) (10/21/2023 2:00 PM CDT) HPV HR 16 Not Detected Not Detected [facility] Comment:Testing performed by : [facility], [address] [place] [address] HPV HR 18 Not Detected Not Detected [facility] Comment:Testing performed by : [facility], [address] [place] [address] HPV HR Non 16/18 Not Detected Not [...] this test have been verified by the [facility] Molecular Infectious Disease laboratory. Correlate with separately reported cytology results, as applicable. Interpretive data last revised 22 Testing performed by: [facility], [address] [place] [address] Endocervical 10/21/2023 2:00 PM CDT 10/25/2023 5:37 PM CDT Robert BOWSER - 10/25/2023 10:43 PM CDT Clinical history and diagnosis->05/07/20 wnl hpv-neg Number of vials->1 Testing type->Screening Last menstrual period (date if known)->PM Imani Almanzar INSIDE CHANNEL ACCOUNT MANAGER LAB BODY FLUIDS AND STOOLS O RDERABLES Final Result [facility] [address] [facility] Department [place] [address] [facility] * Screening Mammogram Bilateral W Slim [...] age 40, based on guidelines of the [place] [employer] (ACR Practice Parameter for the Performance of Screening and Diagnostic Mammography) and [place] [employer]. For women [...] finding in either breast on mammogram. Imani lAmanzar INSIDE CHANNEL ACCOUNT MANAGER IMG MAMMO PROCEDURES Final R esult * (ABNORMAL) TNI with LIPID PANEL (04/30/2016 3:11 PM COMPLETION ENGINEER) Troponin I < 0.300 0.000 - 0.300 ng/mL 04/30/2016 4:22 PM [facility] Comment: Reference using CATHERINE Chemiluminescence Negative: Repeat in 4-6 hours as indicated. Triglycerides 98 0 - 199 mg/dL 04/30/2016 4:25 PM [facility] HISTORICAL RESULTS Comment:12 hr pc highly tiffany mmended for Triglyceride Cholesterol 146 0 - 199 mg/dL 04/30/2016 4:25 PM [facility] HISTORICAL RESULTS Comment: Borderline: 200-239 High Risk: >239 HDL Cholesterol 39(L) 40 - 60 mg/dL 04/30/2016 4:25 PM [facility] HISTORICAL RESULTS Comment: Major Risk < 40 mg/dL Moderate Risk 40-60 mg/dL Negative Risk > 60 mg/dL LDL Cholesterol, Calc 87 0 - 130 mg/dL 04/30/2016 4:25 PM [facility] HISTORICAL RESULTS Comment:High Risk > 159 mg/d L Cholesterol/HDL Ratio 3.7 04/30/2016 4:25 PM [facility] HISTORICAL RESULTS Comment: Cholesterol / HDL Ratio 3.5:1 or less is desirable. Cholesterol / HDL Ratio greater than 5:1 is considered higher risk for developing heart disease. 04/30/2016 3:11 PM COMPLETION ENGINEER 04/30/2016 3:57 PM COMPLETION ENGINEER us Vicente Denis LAB BLOOD ORDERABLES Fi nal Result [facility] HISTORICAL RESULTS * Hemoglobin A1c (10/08/2014 11:00 AM CDT) [facility] Hemoglobin A1c % 5.2 4.8 - 5.9 % 10/08/2014 12:12 PM CDT [facility] HISTORICAL RESULTS Comment: [place] [employer] recommends that the goal of therapy should be an A1C hemoglobin of <7%. Reevaluate the treatment regimen in patients with an A1C >8%. 10/08/2014 11:0 0 AM CDT 10/08/2014 11:19 AM CDT us Carley Burrows MD LAB BLOOD ORDERABLES Fin al Result Performing Organization Address [facility] Co de Phone Number [facility] HISTORICAL RESULTS from Last 3 Months or Most Recently Relevant to Health Maintenance Insurance IDPA MEDICARE [employer]PA MEDICARE [employer] [facility] MEDICARE Address: [address] [address] [place] [address] [employer] Care Teams Science Teacher Relationship Specialty Start Date End Date Von Long MD PCP - General 02/09/19 Keke Guzman, RN Registered Nurse 02/10/17 Alexsandra Orozco, RN Registered Nurse 05/11/17 Alexsandra Orozco, RN Registered Nurse 08/09/17
--- OUTSIDE RECORDS SUMMARY | 2024-05-03 14:55 | XMS_ITS | Encounter Summary ---
Author Organization [facility] Facility Care Team Providers Care Net Technical Architect Name Role Phone Fabrizio BINGHAM MD, Manolo Villaseñor Primary Care Provid er Von Long MD Primary Care Provider [phone] Keke Guzman RN Unavailable Unavailab Alexsandra Serra RN Unavailable Dorcas kristailadaniel Dinh II, MD, [facility] Primary Care [facility] er Alexsandra Orozco RN Unavailable Dorcas Von Branham MD Primary Care Provider [phone] Encounter Details Date Type Department Care Team (Latest Contact Info) Description 02/06/2015 Orders Only [facility] CLINCONV ProviderRoberth MD [address] [place] [id number] Social History Tobacco Use Types Packs/Day Years Used Date Smoking Tobacco: Never Assessed Comments Unknown Sex and Gender Information Value Date Recorded Sex Assigned at Not on file Legal Sex Female 1:27 PM WATER QUALITY ANALYST Gender Identity Not on file Sexual Orientation [...] on filedocumented in this encounter Care Teams Net Technical Architect Relationship Specialty Start Date End Date Manolo [...]
--- OUTSIDE RECORDS SUMMARY | 2024-05-03 14:56 | XMS_ITS | Clinical Summary ---
Author Organization [facility] Address [address] [place] [id number] Care Team Providers Care Probate Clerk Name Role Phone aMnolo Dinh MD Primary Care Provider [phone] Active Problems Patient Care Coordination No te Formatting of this note migh t be different from the original. THERAPY PRECAUTIONS: 6 WEEKS POST OP CARPAL TUNNEL RELEASE HIGH BLOOD PRESSURE-CONTROLLED No known active problems Social History Tobacco Use Types Packs/Day Years Used Date Smoking Tobacco: Never Assessed Comments Unknown Sex and Gender Information Value Date Recorded Sex Assigned at Not on file Legal Sex Female 9:58 PM CDT Gender Identity Not on file Sexual Orientation Not on file Last Filed Vital Signs Vital Sign Reading Time Taken Comments Blood Pressure 128/76 02/18/2017 11:24 AM DIGITAL ENGINEER Pulse 89 02/18/2017 11:24 AM DIGITAL ENGINEER Temperature - - Respiratory Rate - - Oxygen Saturation - - Inhaled Oxygen Concentration - - Weight 139.3 kg (307 lb) 02/18/2017 11:24 AM DIGITAL ENGINEER Height 160 cm (5' 3 ) 08/16/2016 1:47 PM CDT Body Mass Index 54.38 08/16/2016 1:47 PM CDT Plan of Treatment Health Maintenance Due Date Last Done Comments Cervical Cancer Screening Pa p Smear (Age 30 to 64) Every 3 Years 1968 Colorectal Cancer Screening Colonoscopy (10 Years) 1968 Annual Physical 02/25/1971 Hepatitis C 02/25/1986 DTaP, Tdap and Td Vaccines ( 1 - Tdap) 02/25/1987 Hepatitis B Vaccines (1 of 3 - 19+ 3-dose series) 02/25/1987 Cervical Cancer Screening Pa p with HPV Testing (Age 30 to 64) Every 5 Years 02/25/1998 Cervical Cancer Screening with HPV 02/25/1998 Mammogram Screening 2008 Zoster Vaccines (1 of 2) 02/25/2018 COVID-19 Vaccine (2023-2 5 season) 2023 Influenza Adult (#1) 2023 Meningococcal B Vaccine Aged Out No l onger eligible based on patient's age to complete this topic Meningococcal Vaccine Aged Out No [place] eligible based on patient's age to complete this topic Pneumococcal Vaccine: Pediat rics (0 to 5 Years) and At-Risk Patients (6 to 64 Years) Aged Out No longer eligible b ased on patient's age to complete this topic RSV Immunizations Under 20 Months Aged Out No longer eligible based on patient's age to complete this topic Insurance MEDICARE MEDICAID Care Teams Probate Clerk Relationship Specialty Start Date End Date Manolo Dinh MD PCP - General 12/04/11
--- OUTSIDE RECORDS SUMMARY | 2024-05-03 14:56 | XMS_ITS | CONTINUITY OF CARE DOCUMENT ---
Author Name james ramirez Address Unknown Organization [facility] Address [address] [place] [address] [address] [place] [address] Phone [phone] Care Team Providers Care Foot Caster Name Role Phone Halima KAY, Pravin Unavailable [phone] TINO MENDENHALL MD Unavailable [phone] TINO MENDENHALL MD Unavailable [phone] PROBLEMS Condition Status Date Provider Notes Hyperlipidemia;with high crp active Pravin Varghese MD fatty liver;no stones active Pravin Varghese MD Diastolic dysfunction active Pravin Varghese MD Migraine active Grace Dimas NP Asthma completed - Patricia BULLARDP has pulmonary md HTN essential;NEG DUPLEX active Pravin Varghese MD Obesity active Pravin Varghese MD did not want wegoby Tobacco use, quit active Grace Dimas NP Family History Coronary Heart Disease female < 65: active Pravin Varghese MD mom and si blins Exposure to COVID-19 coronavirus;had vaccine and neg swab active Pravin Varghese MD Screening active Pravin Varghese MD did not want nico score ? Sleep apnea active Jayleen Flores NP Emphysema;has pul md active Patricia Bhatti [employer] CAD active Pravin Varghese MD ENCOUNTERS Date Type Provider Location Encounter Diag nosis - In-person encounter Office Visit Pravin Varghese MD [facility] ObesityScreeningCAD - In-person encounter Office Visit Pravin Varghese MD [facility] AsthmaEmphysema;has billy kay - In-person encounter Office Visit Pravin Varghese MD [facility] Emphysema;has billy kay - In-person encounter Office Visit Pravin Varghese MD [facility] Family History Coronary Heart Disease female < 65: - In-person encounter Office Visit Pravin Varghese MD [facility] ? Sleep apnea - In-person encounter Office Visit Pravin Varghese MD [facility] MigraineAsthmaHTN essential;NEG DUPLEXObesityTobacco use, quitFamily History Coronary Heart Disease female < 65:Exposure to COVID-19 coronavirus;had vaccine and neg swab VITAL SIGNS Date Observation Value Provider Body Mass Index (Ratio) 38.61 kg/m2 Alesha Varghese MD blood pressure, diastolic 78 mm[Hg] Li nkLogjaleel blood pressure, systolic 116 mm[Hg] Sana kLog blood pressure, cuff size regular [facility] blood pressure, diastolic 78 mm[Hg] [facility] blood pressure, systolic 116 mm[Hg] [facility], oxim[facility] 100 % [facility] pulse rate 64 /min [facility] respiratory rate E&M 12 /min Dalila marrufo weight E&M 218 [lb_av] [facility] height E&M 63 [in_i] [facility] Body Mass Index (Ratio) 38.97 kg/m2 Alesha Varghese MD blood pressure, cuff size large Ke rri Neduepatsy blood pressure, diastolic 72 mm[Hg] Thanh Maynardneamadasang blood pressure, systolic 136 mm[Hg] Braden Lopezsang oxygen saturation, oximetry 100 % Kat Lopezsang respiratory rate E&M 14 /min Kat carlossang pulse rate 85 /min Kat Douglas [facility] weight E&M 220 [lb_av] Kat Maynardneamadae er height E&M 63 [in_i] Kat Douglas [facility] Body Mass Index (Ratio) 40.88 kg/m2 Alesha Varghese MD blood pressure, diastolic 89 mm[Hg] Victoria nkLogjaleel blood pressure, systolic 141 mm[Hg] Sana Bowling blood pressure, diastolic 89 mm[Hg] St isai Morataya blood pressure, systolic 141 mm[Hg] Alecia Morataya oxygen saturation, oximetry 95 % Gillian oMrataya respiratory rate E&M 16 /min Gillian muniz pulse rate 61 /min Gillian Morataya weight E&M 230.8 [lb_av] Gillian Morataya height E&M 63 [in_i] Gillian Morataya Body Mass Index (Ratio) 41.09 kg/m2 Alesha Varghese MD blood pressure, cuff size large Az anthony [place] blood pressure, diastolic 92 mm[Hg] Mi anthony [place] blood pressure, systolic 142 mm[Hg] [facility] cj Montiel oxygen saturation, oximetry 96 % Lynne Montiel respiratory rate E&M 16 /min Renée Montiel pulse rate 82 /min Lynne don weight E&M 232 [lb_av] Lynne don height E&M 63 [in_i] Lynne don Body Mass Index (Ratio) 43.93 kg/m2 Alesha Varghese MD blood pressure, cuff size large Tr ailyn Jarrell blood pressure, diastolic 80 mm[Hg] Tr ailyn Jarrell blood pressure, systolic 130 mm[Hg] Try leiat Jarrell oxygen saturation, oximetry 99 % Trykenneth Jarrell respiratory rate E&M 16 /min Trynett Jarrell pulse rate 66 /min Trykenneth Jarrell weight E&M 248 [lb_av] Trykenneth Jarrell height E&M 63 [in_i] Trykenneth Jarrell Body Mass Index (Ratio) 44.63 kg/m2 Alesha Varghese MD blood pressure, diastolic 72 mm[Hg] Li nkLogic blood pressure, systolic 146 mm[Hg] Sana kLogic blood pressure, cuff size large Ke rri Lila blood pressure, diastolic 72 mm[Hg] Ke rri Nedueneflorentin blood pressure, systolic 146 mm[Hg] Braden Sharp oxygen saturation, oximetry 98 % Kat Sharp respiratory rate E&M 16 /min Kat berman pulse rate 69 /min Kat Douglas lder weight E&M 252 [lb_av] Kat munizer height E&M 63 [in_i] Kat rabago ALLERGIES Allergy Name Onset Date Reaction Criticality Status IVP DYE Low Criticality active RESULTS Date Observation Value Provider Reference Range Interpretation Location 5 calcium, serum 9.1 mg/dL [facility] 8.6-10.4 Normal 5 carbon dioxide, venous blood 29 mmol/L [facility] 20-32 Normal 5 chloride, serum 109 mmol/L [facility] 98-110 Normal potassium, serum 3.9 mmol/L [facility] 3.5-5.3 Normal sodium, serum 144 mmol/L [facility] 135-146 Normal urea nitrogen/creatini ne ratio, serum 11 (calc) [facility] 6-22 Normal 5 creatinine, serum 1.04 mg/dL [facility] 0.50-1.03 High urea nitrogen, blood 11 mg/dL [facility] 7-25 Normal blood glucose, random 89 mg/dL [facility] 65-99 Normal microalbumin/crea tinine ratio, urine 4 MCG/MG CREAT [facility] <30 Normal microalbumin/tota l urine volume 2 mg/L [facility] Units converted. See lab report for original value. Normal 5 creatinine, random, urine 55 mg/dL [facility] 20-275 Normal 3 c-reactive protein, quantitative, serum 5.51 mg/L [facility] 0.00-3.00 High 3 hepatitis B core IgG, serum Negative [facility] Negative 3 HBsAg - Confirmation Negative [facility] Negative 3 hepatitis A antibody, IgM Negative [facility] Negative 3 pro brain natriuretic peptide 48 pg/mL [facility] 0-249 3 lipoprotein, beta, serum, point, quantitative, calculated 72 mg/dL [facility] 0-99 3 HDL cholesterol, serum 57 mg/dL [facility] >39 3 triglyceride, serum, random 81 mg/dL [facility] 0-149 3 cholesterol, serum 145 mg/dL [facility] 239-325 6140/12/2 3 calcium, serum 9.3 mg/dL [facility] 8.7-10.2 3 carbon dioxide, venous blood 24 mmol/L [facility] 20-29 2021/12/2 3 chloride, serum 106 mmol/L [facility] 96-106 3 potassium, serum 4.2 mmol/L [facility] 3.5-5.2 3 sodium, serum 145 mmol/L [facility] 134-144 High 3 urea nitrogen/creatini ne ratio, serum 17 [facility] 9-23 3 eGFR if 72 mL/min/{1.73 _m2} [facility] >59 3 eGFR if not 63 mL/min/{1.73 _m2} [facility] >59 3 creatinine, serum 1.03 mg/dL [facility] 0.57-1.00 High 3 urea nitrogen, blood 18 mg/dL [facility] 6-24 3 blood glucose, random 72 mg/dL [facility] 65-99 HISTORY OF MEDICATION USE Medication Status Instructions Dates Provider Indications Com elzbietas aspirin 81 mg tablet,chewable active CHEW AND SWALLOW 1 TABLET BY MOUTH DAILY 02/27 Tripp Hamm aspirin 81 mg tablet,chewable completed Take 1 tablet by mouth once a day 05/03 - 02/27 Tripp Hamm rosuvastatin 20 mg tablet active TAKE 1 TABLET BY MOUTH EVERY DAY 05/03 Kat Sharp verapamil 300 mg capsule, [address] active TAKE 1 CAPSULE BY MOUTH DAILY 04/19 Mayda Rushing losartan 100 mg tablet active TAKE 1 TABLET BY MOUTH EVERY DAY 11/11 Jamila Nguyen topiramate 25 mg tablet active TAKE 1 TABLET BY MOUTH EVERY DAY 08/09 Mayda Rushing losartan 100 mg tablet completed Take 1 tablet by mouth once a day 03/01 - 11/11 Grace Ruff Topamax 50 mg tablet completed Take 1 tabl et by mouth once a day - 08/09 Zuleyka Cameron RN rosuvastatin 10 mg tablet completed TAKE 1 TABLET BY MOUTH EVERY DAY 11/11 - 05/03 Pravin Varghese MD verapamil 300 mg capsule, [address] completed Take 1 capsule by mouth once a day 09/30 - 04/19 Lynne Montiel losartan 100 mg tablet completed once a day - 03/01 Pravin Varghese MD metoprolol succinate 25 mg tablet extended release 24 hr completed - 09/30 Pravin Varghese MD phentermine 15 mg capsule active TAKE 1 CAPSULE BY MOUTH EVERY DAY 07/07 Pravin Varghese MD Crestor 10 mg tablet completed Take 1 tabl et once a day TAKE 1 TABLET BY MOUTH EVERY DAY 04/15 - 11/11 Bill Cuba Topamax 25 mg tablet completed TAKE 1 TABL ET BY MOUTH EVERY DAY 04/14 - 03/01 Pravin Varghese MD hydrochlorothiazide 12.5 mg tablet completed every morning - 05/03 Pravin Varghese MD phentermine 15 mg capsule completed Take 1 capsule by mouth once a day 10/29 - 03/28 Pravin Varghese MD Aimovig Autoinjector 70 mg/mL auto-injector completed ADM 1 ML SC Q 30 DAYS - 09/30 Pravin Varghese MD Symbicort 160-4.5 mcg/actuation HFA aerosol inhaler active as needed INHALE 2 PUFFS BY MOUTH TWICE DAILY. RINSE MOUTH WITH WATER AFTER USE. DO NOT SWALLOW Pravin Varghese MD ibuprofen 800 mg tablet completed as needed TK 1 T PO TID - 09/30 Pravin Varghese MD amitriptyline 50 mg tablet completed TK 1 T PO QHS - 03/01 Pravin Varghese MD Ventolin HFA 90 mcg/actuation HFA aerosol inhaler completed INHALE 2 PUFFS BY MOUTH EVERY 6 HOURS NEEDED FOR WHEEZING - 04/22 Patricia Ventimiglia [employer] ProAir HFA 90 mcg/actuation HFA aerosol inhaler completed as needed - 04/22 Patricia Ventimiglia [employer] ergocalciferol (vitamin D2) 1,250 mcg (50,000 unit) capsule active TAKE ONE CAPSULE BY MOUTH EVERY WEEK Grace Dimas NP albuterol sulfate 90 mcg/actuation HFA aerosol inhaler active INHALE 2 PUFFS BY MOUTH EVERY 6 HOURS NEEDED FOR WHEEZING Grace Garrettll [employer]ICE [employer] fluticasone propionate 50 mcg/actuation spray,suspension active SHAKE LIQUID AND USE 2 SPRAYS IN EACH NOSTRIL DAILY Grace Judie POON zolpidem 10 mg tablet completed TK 1 T PO QD HS - 09/30 Pravin Varghese MD metoprolol succinate 25 mg tablet extended release 24 hr completed - 09/30 Pravin Varghese MD montelukast 10 mg tablet completed as needed - 03/01 Pravin Varghese MD venlafaxine 150 mg capsule,extended release 24hr completed TAKE 1 CAPSULE BY MOUTH EVERY DAY - 09/30 Pravin Varghese MD SOCIAL HISTORY Date Observation Value Provider drug use no [facility] alcohol use, average drinks per day social [facility] alcohol use yes [facility] smoking, year quit 2018 [facility] number of years as a smoker 3 a [facility] smoking history, tot al pack/day 4 a day [facility] cigarette use yes [facility] smoking status Former smoker [facility] alcohol use, average drinks per day social Patricia Ventimiglia [facility] drug use no Patricia Ventimig joan [facility] alcohol use yes Patricia Ventimig joan [facility] smoking, year quit 2018 Kat cobb number of years as a smoker 3 a Kat Sharp smoking history, tot al pack/day 4 a day Kat Pyle cigarette use yes Kat Lopez [facility] smoking status Former smoker Kat lerma social history E&M Smoking Histo ry: Isaac farr is a former smoker. Pravin Varghese MD social history reviewed E&M revi ewed - no changes required Pravin Varghese MD social history E&M S moking History: Isaac farr is a former smoker. Pravin Varghese MD social history reviewed E&M revi ewed - no changes required Pravin Varghese MD quit smoking, stage quit Pravin gloria MD smoking, year quit 2019 Lynne Montiel number of years as a smoker 3 a Lynne Montiel smoking history, tot al pack/day 4 a day Lynne Montiel cigarette use yes Lynne Byrnes isi smoking status Former smoker Lynne arguello cigarette use yes Naomy Rodriguezward s smoking status Former smoker Naomy Rodriguezwa rds smoking, year quit 2018 Kat Moiz cobb number of years as a smoker 3 a Kat Lila smoking history, tot al pack/day 4 a day Kat Sharp cigarette use yes Katque domínguez smoking status Former smoker Kat Marinonicolasa lerma FUNCTIONAL STATUS Date Observation Value Provider HRA, CV Assess/Plan, Angina (inactive) Management Plan continue current therapy rPavin Varghese MD INSURANCE PROVIDERS Payer name Policy type / Coverage type Marvell red alliance party ID [facility] Other AARP MEDICARE ADVANTAGE ([facility] COMPLETE PPO) Other [id number] [facility] Medicaid 0 [id number] ADVANCE DIRECTIVES Name Date DISCUSSED - NO DECISION MADE TREATMENT PLAN Date Name Performer [id number],C,B lood pressure today is 136/72. Home RPM shows an average SBP of 150. We will plan renal duplex given HTN persistent and f/u echo to r/o any LV dysfunction or WMA H er updated medication list for this problem includes: Losartan 100 Mg Tablet (Losartan) ..... Take 1 tablet by mouth once a day Verapamil 300 Mg Capsule, [address] (Verapamil) ..... Take 1 capsule by mouth once a day Hydrochlorothiazide 12.5 Mg Tablet (Hydrochlorothiazide) ..... Every morning Patricia Bhatti [facility] [id number],C,L ast LDL 72. She will have labs with PCP tomorrow. H er updated medication list for this problem includes: Rosuvastatin 10 Mg Tablet (Rosuvastatin) ..... Take 1 tablet by mouth every day Patriciagordo Rosassimón [facility] [id number],C,Lifestyle mod ification [facility] [id number],C,L ast echo EF of 65% with no valvular abnormalities this was in 2020. BP however, difficult to control. [facility] [id number],S, Pravin hussein MD [id number],W, H er updated medication list for this problem includes: Verapamil 300 Mg Capsule, [address] (Verapamil) ..... Take 1 capsule by mouth once a day Losartan 100 Mg Tablet (Losartan) ..... Once a day Hydrochlorothiazide 12.5 Mg Tablet (Hydrochlorothiazide) ..... Every morning Metoprolol Succinate 25 Mg Tablet Extended Release 24 Hr (Metoprolol succinate) Metoprolol Succinate 25 Mg Tablet Extended Release 24 Hr (Metoprolol succinate) Verapamil 300 Mg Capsule, [address] (Verapamil) ..... Take 1 capsule by mouth once a day Losartan 100 Mg Tablet (Losartan) ..... Once a day Hydrochlorothiazide 12.5 Mg Tablet (Hydrochlorothiazide) ..... Every morning Metoprolol Succinate 25 Mg Tablet Extended Release 24 Hr (Metoprolol succinate) Hydrochlorothiazide 12.5 Mg Tablet (Hydrochlorothiazide) Metoprolol Succinate 25 Mg Tablet Extended Release 24 Hr (Metoprolol succinate) Pravin Varghese MD [id number],S, Pravin hussein MD [id number],S, n eg hep panel Pravin Varghese MD [id number],S,h as had pankaj, not interested in surgery Pravin Varghese MD [id number],C, p ro 48 Pravin Varghese MD [id number],S, d eos not want quevedo Pravin Varghese MD [id number],S, H er updated medication list for this problem includes: Rosuvastatin 10 Mg Tablet (Rosuvastatin) ..... Take 1 tablet by mouth every day C HOL: 145 (02/12/2021) HDL: 57 (02/12/2021) Pravin Varghese MD [id number],S,T he patient is between 55-77 years old and has smoked at least 30 pack years. The patient is either a current smoker or has quit within the past 15 years.\ T he patient is recommended to have low dose CT scan for lung cancer screening. Has been counseled regarding the importance of tobacco cessation and abstinence. Shared decision making during this office visit included discussion of the benefits and harms of screening, possible future recommendations of follow-up diagnostic testing, and total amount of radiation exposure. The patient was recommended to have annual low dose CT scan for lung cancer screening and is willing to undergo diagnosis and treatment. Pravin Varghese MD [id number],S, a 1c 5.2,, nml tsh n ml b12 iron and faolte e ng stress per pt h igh dd and neg ct pe and vq and vd n eg braiin ct and renal us Pravin Varghese MD [id number],B, Pravin Varghese MD [id number],SPravin MD [id number],S, Pravin hussein MD [id number],SPravin MD [id number],B, Pravin hussein MD [id number],S, a 1c 5.2,, nml tsh n ml b12 iron and faolte e ng stress per pt h igh dd and neg ct pe and vq and vd n eg braiin ct and renal us Pravin Varghese MD [id number],S,deos not want quevedo Pravin Varghese MD [id number],S, p ro 48 Pravin Varghese MD [id number],S, n eg hep panel Pravin Varghese MD [id number],S, H er updated medication list for this problem includes: Crestor 10 Mg Tablet (Rosuvastatin) ..... Take 1 tablet once a day take 1 tablet by mouth every day C HOL: 145 (02/12/2021) HDL: 57 (02/12/2021) Pravin Varghese MD [id number],C,neg hep panel Pravin Varghese MD [id number],C,pro 48 Pravin Varghese MD [id number],C,s he reports that at night she will wake up 'with a dry spot in her throat that causes her to cough.' she states that she has a history of esophageal stricture and at times she reports 'feeling the need to regurgitate after drinking fluids and eating.' she does report some snoring. ? sleep apnea, will check home sleep study. recommend following up with GI given hx of esophageal stricture. Jayleen Flores NP [id number],C,b p today 130/80. will arrange for RPM. Her updated medication list for this problem includes: Hydrochlorothiazide 12.5 Mg Tablet (Hydrochlorothiazide) Metoprolol Succinate 25 Mg Tablet Extended Release 24 Hr (Metoprolol succinate) Jayleen Flores NP [id number],C,w eight today 248. (down 252). on phentermine. will add topamax Jayleen Flores NP [id number],C,has had vacci ne. Jayleen Flores NP [id number],C,E CHO EF 60%$, impaired LV relaxation, trace MR. BP 130/80 today. Jayleen Flores NP [id number],C,pro 51 Pravin Varghese MD [id number],C,a 1c 5.2,, nml tsh n ml b12 iron and faolte h igh dd and neg ct pe and vq and vd n eg braiin ct and renal us Pravin Varghese MD [id number],N,P er pcp H er updated medication list for this problem includes: Symbicort 160-4.5 Mcg/actuation Hfa Aerosol Inhaler (Budesonide-formoterol) ..... Inhale 2 puffs by mouth twice daily. rinse mouth with water after use. do not swallow Budesonide-formoterol 160-4.5 Mcg/actuation Hfa Aerosol Inhaler (Budesonide-formoterol) ..... Inhale 2 puffs by mouth twice daily. rinse mouth with water after use. do not swallow Ventolin Hfa 90 Mcg/actuation Hfa Aerosol Inhaler (Albuterol sulfate) ..... Inhale 2 puffs by mouth every 6 hours as needed for wheezing Proair Hfa 90 Mcg/actuation Hfa Aerosol Inhaler (Albuterol sulfate) Albuterol Sulfate 90 Mcg/actuation Hfa Aerosol Inhaler (Albuterol sulfate) ..... Inhale 2 puffs by mouth every 6 hours as needed for wheezing Montelukast 10 Mg Tablet (Montelukast) Grace Dimas NP [id number],N, Grace ortiz NP [id number],N,Check coronar y calcium score Grace Dimas NP [id number],N,T ry phentermine/topamax for weight loss Grace Dimas NP [id number],N,P rovide patient with RPM, check coronary calcium score, check echo H er updated medication list for this problem includes: Metoprolol Succinate 25 Mg Tablet Extended Release 24 Hr (Metoprolol succinate) Grace Dimas NP Cardiology: n eg hep panel Pravin Varghese MD Cardiology Pravin Varghese MD Cardiology Pravin Varghese MD Cardiology Pravin Varghese MD Cardiology Pravin Varghese MD Cardiology:seen on c llung ct n eg stress per pt Pravin Varghese MD Cardiology: d eos not want quevedo Pravin Varghese MD Cardiology Pravin Varghese MD Cardiology:ct per lung md Pravin Varghese MD Cardiology:neg pro L ast echo EF of 65% with no valvular abnormalities this was in 2020. BP however, difficult to control. Pravin Varghese MD Cardiology:neg egfr and uacr and aaa a 1c 5.2,, nml tsh n ml b12 iron and faolte high dd and neg ct pe and vq and vd n eg braiin ct and renal us Pravin Varghese MD Cardiology: H er updated medication list for this problem includes: Verapamil 300 Mg Capsule, [address] (Verapamil) ..... Take 1 capsule by mouth daily Losartan 100 Mg Tablet (Losartan) ..... Take 1 tablet by mouth every day Hydrochlorothiazide 12.5 Mg Tablet (Hydrochlorothiazide) ..... Every morning BP today: 116/78 P rior BP: 136/72 (04/22/2022) Labs Reviewed: C reat: 1.04 (02/25/2022) C hol: 145 (02/12/2021) HDL: 57 (02/12/2021) LDL: 72 (02/12/2021) T (02/12/2021) Pravin Varghese MD Cardiology:Blood pre ssure today is 136/72. Home RPM shows an average SBP of 150. We will plan renal duplex given HTN persistent and f/u echo to r/o any LV dysfunction or WMA H er updated medication list for this problem includes: Losartan 100 Mg Tablet (Losartan) ..... Take 1 tablet by mouth once a day Verapamil 300 Mg Capsule, [address] (Verapamil) ..... Take 1 capsule by mouth once a day Hydrochlorothiazide 12.5 Mg Tablet (Hydrochlorothiazide) ..... Every morning Patricia Bhatti [facility] Cardiology:Last LDL 72. She will have labs with PCP tomorrow. H er updated medication list for this problem includes: Rosuvastatin 10 Mg Tablet (Rosuvastatin) ..... Take 1 tablet by mouth every day Patriciagordo Bhatti [facility] Cardiology:Lifestyle modificatio n Patriciagordo Bhatti [facility] Cardiology:Last echo EF of 65% with no valvular abnormalities this was in 2020. BP however, difficult to control. [facility] Cardiology Pravin Varghese MD Cardiology: H er updated medication list for this problem includes: Verapamil 300 Mg Capsule, [address] (Verapamil) ..... Take 1 capsule by mouth once a day Losartan 100 Mg Tablet (Losartan) ..... Once a day Hydrochlorothiazide 12.5 Mg Tablet (Hydrochlorothiazide) ..... Every morning Metoprolol Succinate 25 Mg Tablet Extended Release 24 Hr (Metoprolol succinate) Metoprolol Succinate 25 Mg Tablet Extended Release 24 Hr (Metoprolol succinate) Verapamil 300 Mg Capsule, [address] (Verapamil) ..... Take 1 capsule by mouth once a day Losartan 100 Mg Tablet (Losartan) ..... Once a day Hydrochlorothiazide 12.5 Mg Tablet (Hydrochlorothiazide) ..... Every morning Metoprolol Succinate 25 Mg Tablet Extended Release 24 Hr (Metoprolol succinate) Hydrochlorothiazide 12.5 Mg Tablet (Hydrochlorothiazide) Metoprolol Succinate 25 Mg Tablet Extended Release 24 Hr (Metoprolol succinate) Pravin Varghese MD Cardiology Pravin Varghese MD Cardiology: n eg hep panel Pravin Varghese MD Cardiology:has had bennett martini, not interested in surgery Pravin Varghese MD Cardiology: p ro 48 Pravin Varghese MD Cardiology: d eos not want quevedo Pravin Varghese MD Cardiology: H er updated medication list for this problem includes: Rosuvastatin 10 Mg Tablet (Rosuvastatin) ..... Take 1 tablet by mouth every day C HOL: 145 (02/12/2021) HDL: 57 (02/12/2021) Pravin Varghese MD Cardiology:The patie nt is between 55-77 years old and has smoked at least 30 pack years. The patient is either a current smoker or has quit within the past 15 years.\ T he patient is recommended to have low dose CT scan for lung cancer screening. Has been counseled regarding the importance of tobacco cessation and abstinence. Shared decision making during this office visit included discussion of the benefits and harms of screening, possible future recommendations of follow-up diagnostic testing, and total amount of radiation exposure. The patient was recommended to have annual low dose CT scan for lung cancer screening and is willing to undergo diagnosis and treatment. Pravin Varghese MD Cardiology: a 1c 5.2,, nml tsh n ml b12 iron and faolte e ng stress per pt h igh dd and neg ct pe and vq and vd n eg braiin ct and renal us Pravin Varghese MD Cardiology Pravin Varghese MD Cardiology Pravin Varghese MD Cardiology Pravin Varghese MD Cardiology Pravin Varghese MD Cardiology Pravin Varghese MD Cardiology: a 1c 5.2,, nml tsh n ml b12 iron and faolte e ng stress per pt h igh dd and neg ct pe and vq and vd n eg braiin ct and renal us Pravin Varghese MD Cardiology:deos not want quevedo Alesha Varghese MD Cardiology: p ro 48 Pravin Varghese MD Cardiology: n eg hep panel Pravin Varghese MD Cardiology: H er updated medication list for this problem includes: Crestor 10 Mg Tablet (Rosuvastatin) ..... Take 1 tablet once a day take 1 tablet by mouth every day C HOL: 145 (02/12/2021) HDL: 57 (02/12/2021) Pravin Varghese MD :neg hep panel Pravin Varghese MD :pro 48 Pravin Varghese MD Cardiology:she repor ts that at night she will wake up 'with a dry spot in her throat that causes her to cough.' she states that she has a history of esophageal stricture and at times she reports 'feeling the need to regurgitate after drinking fluids and eating.' she does report some snoring. ? sleep apnea, will check home sleep study. recommend following up with GI given hx of esophageal stricture. Jayleen Flores NP Cardiology:bp today 130/80. will arrange for RPM. Her updated medication list for this problem includes: Hydrochlorothiazide 12.5 Mg Tablet (Hydrochlorothiazide) Metoprolol Succinate 25 Mg Tablet Extended Release 24 Hr (Metoprolol succinate) Jayleen Flores NP Cardiology:weight to day 248. (down 252). on phentermine. will add topamax Jayleen Flores NP Cardiology:has had vaccine. Katie Flores NP Cardiology:ECHO EF 6 0%$, impaired LV relaxation, trace MR. BP 130/80 today. Jayleen Flores NP [employer] needs hepscreen:p ro 51 Pravin Varghese MD [employer] re[employer] needs hepscreen:a1c 5.2,, nml tsh n ml b12 iron and faolte h igh dd and neg ct pe and vq and vd n eg braiin ct and renal us Pravin Varghese MD Cardiology:Per pcp H er updated medication list for this problem includes: Symbicort 160-4.5 Mcg/actuation Hfa Aerosol Inhaler (Budesonide-formoterol) ..... Inhale 2 puffs by mouth twice daily. rinse mouth with water after use. do not swallow Budesonide-formoterol 160-4.5 Mcg/actuation Hfa Aerosol Inhaler (Budesonide-formoterol) ..... Inhale 2 puffs by mouth twice daily. rinse mouth with water after use. do not swallow Ventolin Hfa 90 Mcg/actuation Hfa Aerosol Inhaler (Albuterol sulfate) ..... Inhale 2 puffs by mouth every 6 hours as needed for wheezing Proair Hfa 90 Mcg/actuation Hfa Aerosol Inhaler (Albuterol sulfate) Albuterol Sulfate 90 Mcg/actuation Hfa Aerosol Inhaler (Albuterol sulfate) ..... Inhale 2 puffs by mouth every 6 hours as needed for wheezing Montelukast 10 Mg Tablet (Montelukast) Grace Judie OFFICE RUNNER Cardiology Grace Yanezdall N P Cardiology:Check coronary calciu m score Grace Judie OFFICE RUNNER Cardiology:Try phentermine/topam ax for weight loss Grace Judie OFFICE RUNNER Cardiology:Provide p atient with RPM, check coronary calcium score, check echo H er updated medication list for this problem includes: Metoprolol Succinate 25 Mg Tablet Extended Release 24 Hr (Metoprolol succinate) Grace Garrettangel POON Date Name Renal Artery Duplex Complete Echo BASIC METABOLIC PANE L W/EGFR Microalb/Creatinine Urine, Random CT, Coronary Calcium Score Renal Artery Duplex Complete Echo Low Dose Lung CT Renal Artery Duplex Complete Echo CT, Coronary Calcium Score CT, Coronary Calcium Score C-REACTIVE PROTEIN LIPID PANEL RPM (remote patient monitoring) PROBNP, N TERMINAL BASIC METABOLIC PANE L W/EGFR Sleep Study Home HEPATITIS PANEL RPM (remote patient monitoring) CT, Coronary Calcium Score Complete Echo HISTORY OF PROCEDURES Procedure Date Procedure Name Provider Procedure Notes S tatus Counseling LDCT Pravin Varghese MD cot com pleted
[2024-05-03 16:42] LABS: Alanine Aminotransferase 24 U/L (6-35); Albumin Level 4.3 g/dL (3.5-5.1); Alkaline Phosphatase 103 U/L (38-126); Anion Gap 8 mmol/L (4-12); Aspartate Amino Transferase 32 U/L (14-36); Bilirubin,Total 0.3 mg/dL (0.2-1.3); Blood Urea Nitrogen 18 mg/dL (7-17); Calcium 9.2 mg/dL (8.4-10.2); Carbon Dioxide 25 mmol/L (22-30); Chloride 110 mmol/L (98-107); Estimated Glomerular Filt Rate 49; Glucose 104 mg/dL (65-110); Potassium 3.8 mmol/L (3.4-5.0); Sodium 143 mmol/L (137-145)
[2024-05-03 16:44] LABS: Iron 49 ug/dL (37-170)
[2024-05-03 16:54] LABS: Percent Iron Saturation 15 % (20-50)
[2024-05-03 18:26] LABS: Folic Acid 9.8 ng/mL (2.76->20)
== END 2024-05-03 13:20 | disposition home or self-care (01) ==
LOC: ANHLAB 13:20
PROVIDERS: PCP Emergency Medicine; Visit Provider Internal Medicine Hematology & Oncology
DX: D50.9 Iron deficiency anemia, unspecified (principal)
CPT/HCPCS: 36415; 80053; 82607; 82728; 82746; 83540; 83550; 85025

== ENCOUNTER 2024-07-26 13:30 | Outpatient (RCR) | payer MEDICARE, MEDICAID, SELFPAY ==
--- NOTE | 2024-06-26 11:01 | OPREHPOC ---
Outpatient Therapy Plan of Care This is a Multidisciplinary Plan of Care that may contain components documented by all disciplines (PT, OT, and ST.) PT Problem 1 PT Problem #1 Knowledge Deficit PT Goal 1 Goal / Goal Update *independent with HEP Target Visit 8 PT Problem 2 PT Problem #2 Pain PT Goal 1 Goal / Goal Update * pt report pain rating at worst in back and R hip of 5/10 Target Visit 8 PT Problem 3 PT Problem #3 Impaired Strength PT Goal 1 Goal / Goal Update *increase trunk and hip strength bilateral, to 4+/ 5 to improve stability to spine and hips Target Visit 8 PT Problem 4 PT Problem #4 Impaired Functional Mobility PT Goal 1 Goal / Goal Update * 2 minute walking test distance of 500' with pain rating of 5/10 Target Visit 8 PT Problem 5 PT Problem #5 Impaired Flexibility PT Goal 1 Goal / Goal Update *increase R hamstring length with supine SLR to 45 ' Target Visit 8
--- NOTE | 2024-06-26 11:01 | PTOPEVAL1 ---
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; cares for family; independent with all self care and home tasks; goal: get hip better Reported Pain Level Pain Score 5: Self Report Additional Pain Score Comments pain range in the past week 5-8/10; pulls R anterior hip and hurts over quad, to proximal knee ; burning, stabbing; sometimes back of hip hurts increase pain: lifting, squatting; decrease pain: stretching, move leg out straight, tylenol, flexeril, heat, ice reported tolerances: walk/standing 10 minutes; sleeping disrupted- does not count how many times wake up wear back brace sometimes, have history of back pain; Assessment PT Clinical Summary Paulina has the diagnosis of R hip pain. She reports chronic issues with hip pain, with recent increase in pain without injury. LE functional scale rating of 46% limitation in activity level. She performs all self care and home tasks with increase pain. Standing, walking and sleeping are limited due to pain. History includes: chronic back and hip pain; fibromyalgia, migraines, vertigo. With the evaluation: she has decreased R hip flexion ROM, with tightness of anterior hip and hamstring; decreased strength of trunk and hips; pain is increased with standing trunk flexion and extension motions; with 2 minute walking test distance of 460' with pain in back and hips increase to 7/10.; standing posture with increased lumbar lordosis and pain with palpation over R and L sacrum. Skilled PT services for treatment of low back and R hip pain: modalities to decrease pain; therapeutic exercises to increase strength and flexibility with education for HEP and posture/ body mechanics. Plan of Care Interventions Electrical Stimulation,Hot Pack/Cold Pack,Manual Therapy,Mechanical Traction,Neuro Re-education, Patient/Caregiver Education,Therapeutic Activities ,Therapeutic Exercise,Ultrasound,Other Other Interventions taping PT Services Indicated Yes Treatment Frequency and 1-2x/wk for 8 visits Duration These treatments will address the objective and functional deficits as defined above. The patient will be advanced safely and appropriately in order for the patient to progress towards his/her prior level of function. Additional exercises will be introduced and as well as a comprehensive home exercise program upon discharge, if needed, ?to ensure carryover of functional gains achieved in the clinic. This treatment plan has been reviewed and agreement upon by the patient.
--- NOTE | 2024-07-17 15:17 | PCPTNOTE ---
Cancelled d/t schedule conflict. RHONAS
--- NOTE | 2024-07-26 14:39 | OPREHPOC ---
Outpatient Therapy Plan of Care This is a Multidisciplinary Plan of Care that may contain components documented by all disciplines (PT, OT, and ST.) PT Problem 1 PT Problem #1 Knowledge Deficit PT Goal 1 Goal / Goal Update *independent with HEP 6-5-25 d/c goal met Target Visit 8 Progress Met PT Problem 2 PT Problem #2 Pain PT Goal 1 Goal / Goal Update * pt report pain rating at worst in back and R hip of 5/10 6-525 d/c goal not met, 8/10 at worst Target Visit 8 Progress Not Met PT Problem 3 PT Problem #3 Impaired Strength PT Goal 1 Goal / Goal Update *increase trunk and hip strength bilateral, to 4+/ 5 to improve stability to spine and hips 6-5-25 d/c goal not met, 4-/5 Target Visit 8 Progress Not Met PT Problem 4 PT Problem #4 Impaired Functional Mobility PT Goal 1 Goal / Goal Update * 2 minute walking test distance of 500' with pain rating of 5/10 6-5-25 d/c goal not met, 415' with pain 7/10 Target Visit 8 PT Problem 5 PT Problem #5 Impaired Flexibility PT Goal 1 Goal / Goal Update *increase R hamstring length with supine SLR to 45 ' 6-525 d/c goal not met, improved to 40' Target Visit 8 Progress Not Met
--- NOTE | 2024-07-26 14:39 | PTOPDC ---
Assessment and note entered by Josselyn Vargas, PT Assessment Status Discharge ICD-10 Condition Codes (PT) Pain in low back M54.50,Pain in right hip M25.551 Other ICD-10 Condition Codes ( S76.011A strain of R hip flexor muscle PT) Onset about one month Subjective Information the therapy is helping, stretches have helped; return to dr in few weeks; have been busy- sister was in the hospital and now home, so helping her; not feeling too well today--have sinus and allergy issues, dr told me from blood work have anemia and some other values are off; want to get more testing of my hip; have a referral to ortho dr; agree to d/c PT and return to the dr for follow up . Reported Pain Level Pain Score Self Report Additional Pain Score Comments pain range in the past week: 4-8/10; lateral hip and inner thigh increase pain: getting in/out car; bending, squatting, bending, stairs, when being rushed decrease pain: stretching, heat, stim also have some back pain; reported standing/walking tolerance of 5-10 minutes and then have to sit down due to pain and breathing issues with asthma Assessment PT Clinical Summary Paulina has received 6 PT sessions. She called/ canceled 1 appointment. Compared to the initial evaluation: pain range from 5-8/10 to 4-8/10; self assessment with LE functional scale rating from 46% to 74% limitation in activity level; 2 minute walking test distance from 460' to 415', both with reports of 7 /10 pain after walking; hamstring length on R with SLR stretch from 30' to 40'; education for HEP, posture and pain management techniques. The goals were partially achieved. She did have some pain relief with the heat and electrical stim . Discharge PT. She is to continue with her HEP and is to follow up with her medical provider. Plan of Care PT Services Indicated No
== END 2024-07-27 09:28 | disposition home or self-care (01) ==
LOC: ANHPT 13:30
PROVIDERS: PCP Emergency Medicine; Visit Provider Physician Assistant
DX: S76.011A Strain of muscle, fascia and tendon of right hip, initial encounter (principal)
CPT/HCPCS: 97014; 97110; 97140; 97162; 97530; G0283

== ENCOUNTER 2024-11-06 14:45 | Outpatient (CLI) | payer MEDICARE, MEDICAID, SELFPAY ==
--- OUTSIDE RECORDS SUMMARY | 2024-11-05 15:15 | XMS_ITS | Encounter Summary ---
Author Organization [facility] Healthcare Address [address] [place] [address] Care Team Providers Care Sales Engineer Name Role Phone Keke Guzman RN Unavailable Unavailab Alexsandra Serra RN Unavailable Dorcas vailable Alexsandra Orozco RN Unavailable Dorcas vailable Von Long MD Primary Care Provider [phone] Reason for Referral * Consultation (Routine) - Pending Review Specialty Diagnoses / Procedures Referred By Contac t Referred To Contact Pain Management Diagnoses Chronic bilateral low back pain with bilateral sciatica Mannie Workman PA [address] [facility] [address] [place] [address] Phone: tel: fax: [facility] [address] [facility] [place] [address] [place] [address] Phone: tel: fax: Referral ID Status Reason Start Date Expiration Date Visits Requested Visits Authorized [id number] Pending Review Specialty Services Required 11/05/2024 12/05/2025 1 1 Question Answer Please select the performing region: External Order [171] To loc/pos [facility] [[id number]] # of visits: 1 Comments Eval/Treat chronic lower back pain * MRI/CAT/PET Scan (Routine) - Authorized Specialty Diagnoses / Procedures Referred By Contac t Referred To Contact Radiology Diagnoses Chronic bilateral low back pain with bilateral sciatica Procedures CT Lumbar Spine WO Contrast Mannie Workman PA [address] [place] [address] Phone: tel: fax: [facility] [address] [place] [address] Referral ID Status Reason Start Date Expiration Date V isits Requested Visits Authorized [id number] Authorized 11/05/2024 12/05/2025 1 1 Reason for Visit * Consultation (Routine) - Closed Specialty Diagnoses / Procedures Referred By Contac t Referred To Contact Neurosurgery Diagnoses Chronic right-sided low back pain with right-sided sciatica Spinal stenosis, lumbar region, with neurogenic claudication Neural foraminal stenosis of lumbar spine Protrusion of lumbar intervertebral disc Degeneration of intervertebral disc of lumbar region with discogenic back pain and lower extremity pain Lumbar facet arthropathy Spondylolisthesis of lumbar region Felisa Roberson, ASSISTANT CORPORATE CONTROLLER [address] [place] [address] Phone: tel: fax: Sander Peres MD [address] [place] [address] Phone: tel: fax: Referral ID Status Reason Start Date Expiration Date V isits Requested Visits Authorized [id number] Closed Specialty Services Required 10/09/2024 11/08/2025 1 1 Encounter Details Date Type Department Care Team (Latest Contact Info) Description 11/05/2024 3:15 PM CDT Office Visit [facility] [address] [place] [address] Mannie Workman PA [address] [place] [address] Degeneration of intervertebral disc of lumbar region without discogenic back pain or lower extremity pain (Primary Dx); Chronic bilateral low back pain with bilateral sciatica; Lumbosacral spondylosis without myelopathy; BMI 38.0-38.9,adult Social History Tobacco Use Types Packs/Day Years Used Date Smoking Tobacco: Former Cigarettes - 2015 Smokeless Tobacco: Never Alcohol Use Standard Drinks/Week Comments Yes 1 (1 standard drink = 0.6 oz pur e alcohol) occassionally AUDIT-C Answer Date Recorded Q1: How often do you have a drink containing alc ohol? 2-4 times a month 11/05/2024 Q2: How many drinks containi ng alcohol do you have on a typical day when you are drinking? 1 or 2 11/05/2024 Q3: How often do you have si x or more drinks on one occasion? 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 Gender Identity Not on file Sexual Orientation Not on file documented as of this encounter Last Filed Vital Signs Vital Sign Reading Time Taken Comments Blood Pressure - - Pulse - - Temperature - - Respiratory Rate - - Oxygen Saturation 98% 11/05/2024 2:52 PM CDT Inhaled Oxygen Concentration - - Weight 99.8 kg (220 lb) 11/05/2024 2:52 PM CDT Height 160 cm (5' 2.99) 11/05/2024 2:52 PM CDT Body Mass Index 38.98 11/05/2024 2:52 PM CDT documented in this encounter Functional Status * AUDIT-C Score Answer Date of Assessment Author 2 11/05/2024 2:53 PM CDT Milton Shah RN * Question Answer Date of Assessment Author Q1: How often do you have a drink containing alcohol? 2-4 times a month 11/05/2024 2:53 PM CDT Mayda Shah RN Q2: How many drinks containing alcohol do you have on a typical day when you are drinking? 1 or 2 11/05/2024 2:53 PM CDT Mayda Shah RN Q3: How often do you have six or more drinks on one occasion? Never 11/05/2024 2:53 PM CDT Mayda Shah RN documented as of this encounter Progress Notes * Mannie Workman PA - 11/05/2024 3:15 PM CDT Images from the original note were not included. NEW PATIENT VISIT CC: No chief complaint on file. Referring Provider: Von Long MD HPI: Paulina Odell is a 54 y.o. female presenting for evaluation of low back pain. Patient complains of low back pain most bothersome on the right side. She denies nearly all signs and symptoms of neurogenic claudication however does endorse issues with stairs. Patient's back pain is primarily axial in nature however it does also seem as though some of her pain is musculoskeletal. Medications tried: Currently: Flexeril, gabapentin, [place], meloxicam Previously tried: - Pain Management: None Physical Therapy: Completed High risk medications: Blood thinning medications: ASA 81 Immunosuppressive medications: - Steroids: Inhaled GLP1 agonist: - SGLT2 inhibitors: - ARNULFO/ARBs: Losartan Psychiatric: Ambien Seizure: - Smoking: Former Diabetes: Yes, most recent A1c on 10/08/2024 was 5.2 ROS: A complete 11 system ROS was performed and was negative aside from pertinent positives and negatives noted in HPI PMH: has a past medical history of Anxiety, Arthritis, Asthma, Chronic pain disorder, DDD (degenerative disc disease), lumbar, Depression, Diabetes mellitus (HCC), Fibromyalgia, primary, Hypertension, Lowback pain, Lumbar facet arthropathy, Neck pain, Peripheral neuropathy, Sleep apnea, and Spondylolisthesis, lumbar region, L4-L5. PSH: has a past surgical history that includes Other surgical history; Other surgical history; Rotator cuff repair; Carpal tunnel release (Right, 12/2016); and [place] Fluoro Guided Injection Hip Right (Right,09/21/2024). FH: family history includes Breast cancer (age of onset: 55) in her sister; Breast cancer (age of onset: 60) in her sister; Heart disease in her mother; Lung cancer in her father and sister. SH: reports that she quit smoking about 9 years ago. Her smoking use included cigarettes. She started smoking about 21 years ago. She has never used smokeless tobacco. She reports that she does not use drugs. MEDICATIONS: Current Outpatient Medications: albuterol 2.5 mg /3 mL (0.083 %) nebulizer solution, USE 1 VIAL IN NEBULIZER EVERY 6 HOURS - As Needed For Wheezing Or Shortness of Breath, Disp: 120 mL, Rfl: 3 albuterol HFA (PROVENTIL HFA,VENTOLIN HFA,PROAIR HFA) 90 mcg/actuation inhaler, Inhale 2 puffs every 6 (six) hours as needed for wheezing for wheezing, Disp: 6.7 g, Rfl: 5 amitriptyline (ELAVIL) 50 mg tablet, , Disp: , Rfl: 5 aspirin 81 mg chewable tablet, Take 1 tablet (81 mg total) by mouth daily, Disp: , Rfl: cefdinir (OMNICEF) 300 mg capsule, , Disp: , Rfl: cyanocobalamin (Vitamin B-12) 500 mcg tablet, cyanocobalamin (vitamin B-12) 500 mcg tablet, Disp: ,Rfl: cyclobenzaprine (FLEXERIL) 10 mg tablet, Take 1 tablet (10 mg total) by mouth nightly as needed, Disp: , Rfl: doxycycline hyclate 100 mg capsule, Take 1 tablet/capsule (100 mg total) by mouth 2 (two) times a day, Disp: , Rfl: ergocalciferol (VITAMIN D) 50,000 unit capsule, TAKE 1 CAPSULE BY MOUTH ONCE WEEKLY, Disp: , Rfl: ferrous sulfate (FeosoL) 325 mg (65 mg of elemental iron) tablet, Feosol 325 mg (65 mg iron) tablet, Disp: , Rfl: fluticasone propionate (FLONASE) 50 mcg/actuation nasal spray, SHAKE LIQUID AND USE 1 SPRAY IN EACHNOSTRIL TWICE DAILY, Disp: 16 g, Rfl: 5 gabapentin (NEURONTIN) 300 mg capsule, take 1 capsule by oral route 3 times every day, Disp: 0, Rfl: 0 hydroCHLOROthiazide (HYDRODIURIL) 12.5 mg tablet, , Disp: , Rfl: HYDROcodone-acetaminophen (NORCO) 5-325 mg per tablet, Take 1-2 tablets by mouth as needed, Disp: ,Rfl: losartan (COZAAR) 100 mg tablet, Take 1 tablet (100 mg total) by mouth daily, Disp: , Rfl: losartan (COZAAR) 25 mg tablet, 4 tablets (100 mg total), Disp: , Rfl: meclizine (ANTIVERT) 25 mg tablet, 1 tablet (25 mg total) daily, Disp: , Rfl: meloxicam (MOBIC) 15 mg tablet, Take 1 tablet (15 mg total) by mouth daily for 90 doses, Disp: 30 tablet, Rfl: 2 metoprolol XL (TOPROL-XL) 25 mg extended release tablet, , Disp: , Rfl: montelukast (SINGULAIR) 10 mg tablet, TAKE 1 TABLET(10 MG) BY MOUTH EVERY NIGHT, Disp: 30 tablet, Rfl: 3 ondansetron ODT (ZOFRAN-ODT) 4 mg disintegrating tablet, Take 1 tablet (4 mg total) by mouth every 8 (eight) hours as needed for nausea or vomiting, Disp: 20 tablet, Rfl: 3 phentermine 15 mg capsule, Take by mouth daily, Disp: , Rfl: potassium chloride ER 10 mEq CR tablet, , Disp: , Rfl: rizatriptan (MAXALT) 10 mg tablet, Take 1 tablet (10 mg total) by mouth as needed for migraine May repeat in 2 hours if unresolved. Do not exceed 30 mg in 24 hours., Disp: 9 tablet, Rfl: 3 ROPivacaine (NAROPIN) 5 mg/mL (0.5 %) injection, , Disp: , Rfl: rosuvastatin (CRESTOR) 10 mg tablet, Take 1 tablet (10 mg total) by mouth daily, Disp: , Rfl: rosuvastatin (CRESTOR) 20 mg tablet, Take 1 tablet (20 mg total) by mouth daily, Disp: , Rfl: Symbicort 160-4.5 mcg/actuation inhaler, INHALE 2 PUFFS BY MOUTH TWICE DAILY. RINSE MOUTH WITH WATER AFTER USE. DO NOT SWALLOW, Disp: 10.2 g, Rfl: 3 topiramate (TOPAMAX) 50 mg tablet, Take 1 tablet (50 mg total) by mouth 2 (two) times a day, Disp: 60 tablet, Rfl: 2 triamcinolone (Kenalog) 10 mg/mL injection, , Disp: , Rfl: ubrogepant (Ubrelvy) 50 mg tablet, Take 1 tablet (50 mg total) by mouth once as needed for migraineMay repeat dose once in 2 hours if no relief. Do not exceed 2 doses in 24 hours., Disp: 10 tablet, Rfl: 3 venlafaxine XR (EFFEXOR-XR) 150 mg 24 hr capsule, Take 1 capsule (150 mg total) by mouth, Disp: , Rfl: verapamil PM (VERELAN PM) 300 mg 24 hr capsule, Take by mouth daily, Disp: , Rfl: zolpidem CR (AMBIEN CR) 12.5 mg CR tablet, 10 mg daily, Disp: , Rfl: ALLERGIES: is allergic to iodinated contrast media and iohexol. VITAL SIGNS: Ht 160 cm (5' 2.99) Wt 99.8 kg (220 lb) LMP 03/07/2021 (LMP Unknown) SpO2 98% BMI 38.98 kg/m?? Body mass index is 38.98 kg/m??. PHYSICAL EXAM: Alert and oriented times 3 No acute distress Normal bulk and tone Normal ROM No tenderness of paraspinal muscles or SI joints 5/5 in UE and LE Sensation intact to light touch in all dermatomes Upper and lower DTR within normal limits Normal gait IMAGING/EDX: X-rays CT MRI 10/05/24 Dexa EDX Assessment and Plan: Paulina Odell is presenting for low back pain. The patients clinical symptoms include right-sidedlow back pain without significant radiation. She does endorse issues with stairs however denies allother signs or symptoms of neurogenic claudication. I have personally reviewed the patient's MRI lumbar spine 10/05/2024 and find disc degeneration most notable at the L3-4, L4-5, and L5-S1 levels with some central stenosis and lateral recess stenosis also at these levels. She does appear to have apars fracture at L5-S1 however we will evaluate this more in-depth with a CT scan. We discussed that their condition does pose a risk to neurologic/bodily function. If left untreated can cause worsening leg weakness, difficulty ambulating, falls. We discussed both operative and conservative therapy, namely pain management injections versus lumbar decompression versus ALIF. We discussed that givenher age is best to avoid an ALIF if possible. She primarily complains of axial back pain and does not endorse any significant neurogenic claudication issues. We discussed that a minimally invasive decompression surgery would address her lumbar stenosis however without significant neurogenic claudication there is not significant indication for this. I would like to send the patient to pain management for injections for her axial back pain. I did educate the patient on the signs and symptoms of neurogenic claudication and she is to contact us for a sooner appointment if she begins experiencing these. I would also like to obtain a CT lumbar spine to evaluate further. We will have the patient follow up in 3 months to reassess her symptoms and review new imaging at this time and discuss surgery further if necessary. The patient was understanding and agreeable with this plan with all questions answered upon end of visit. CT lumbar spine Pain management referral for axial back pain Follow up in 3 months ARTI Apodaca Cosigned by Sander Peres MD at 11/06/2024 12:49 PM CDT documented in this encounter Plan of Treatment Scheduled Orders Name Type Priority Associated Diagnoses Orde r Schedule CT Lumbar Spine WO Contrast Imaging Schedule Routine, Read Routine (OP Routine) Chronic bilateral low back pain with bilateral sciatica Expected: 11/05/2024, Expires: 11/05/2025 Scheduled Referrals Name Type Priority Associated Diagnoses Order Schedule Ambulatory referral to Pain Management Outpatient Referral Routine Chronic bilateral low back pain with bilateral sciatica Expected: 01/05/2025 (Approximate), Expires: 11/05/2025 documented as of this encounter Goals Goal Patient Goal Type Associated Problems Recent Progress Patient-Stated? Author Being active Exercise No Keke Guzman, RN Note: Patient will be more active by: documented as of this encounter Visit Diagnoses Diagnosis Degeneration of intervertebral disc of lumbar region without discogenic back pain or lower extremity pain- Primary Chronic bilateral low back pain with bilateral sciatica Lumbosacral spondylosis without myelopathy BMI 38.0-38.9,adult documented in this encounter Orders Outpatient Referral Count Last Ordered Date st Ordered Date AMB REFERRAL TO NEUROSURGERY 1 11/05/2024 documented in this encounter Care Teams Sales Engineer Relationship Specialty Start Date End Date Von Long MD PCP - General 02/09/19 Keke Guzman, RN Registered Nurse 02/10/17 Alexsandra Orozco, RN Registered Nurse 05/11/17 Alexsandra Orozco, RN Registered Nurse 08/09/17 documented as of this encounter
[2024-11-06 15:12] LABS: Hematocrit 36.3 % (37.0-47.0); Hemoglobin 11.4 g/dL (12.0-15.0); Mean Corpuscular HGB Conc 31.4 g/dl (32-36); Mean Corpuscular Hemoglobin 31.2 pg (26-34); Mean Corpuscular Volume 99.5 fl (80-100); Platelet Count Result 245 k/mm3 (150-375); Red Blood Count 3.65 M/mm3 (4.2-5.4); White Blood Count 8.1 K/mm3 (4.5-10.0)
--- OUTSIDE RECORDS SUMMARY | 2024-11-06 16:13 | XMS_ITS | Encounter Summary ---
Author Organization [facility] Facility Care Team Providers Care Aviation Electronic Warfare Operator Name Role Phone Von Long MD Primary Care Provider [phone] Keke Guzman RN Unavailable Unavailab Alexsandra Serra RN Unavailable Dorcas vailable Fabrizio BINGHAM MD, Manolo Villaseñor Primary Care Provid er Alexsandra Orozco RN Unavailable Dorcas vailable Von Long MD Primary Care Provider [phone] Encounter Details Date Type Department Care Team (Latest Contact Info) Description 12/16/2016 Orders Only [facility] ProviderRoberth MD [address] [place], [place] [id number] Social History Tobacco Use Types Packs/Day Years Used Date Smoking Tobacco: Never Assessed Comments Unknown Sex and Gender Information Value Date Recorded Sex Assigned at Not on file 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
--- OUTSIDE RECORDS SUMMARY | 2024-11-06 16:13 | XMS_ITS | Clinical Summary ---
Author Organization [facility] Address [address] [place] [address] Care Team Providers Care Sap Solution Manager Consultant Name Role Phone Von Long MD Primary Care Provider [phone] Allergies Active Allergy Reactions Criticality Noted Date [...] Encounters Date Type Department Care Team Description 09/25/2024 External Device Data STL ABSTRACTION Provider, Abstract 09/05/2024 External Device Data STL ABSTRACTION Provider, Abstract 09/04/2024 External Device Data STL ABSTRACTION Provider, Abstract 08/07/2024 External Device Data STL ABSTRACTION Provider, Abstract [...] 2 Q uit: 10/04/2008 Smokeless Tobacco: Never Tobacco Cessation:Counseling Given: Not Answered Alcohol Use Standard Drinks/Week Comments Yes 0 (1 standard drink = 0.6 oz pur e alcohol) occcasional Comments Unknown Sex and Gender Information Value Date Recorded Sex Assigned at Not on file 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 Gender Identity Not on file Sexual Orientation Not on file Last Filed Vital Signs Vital Sign Reading Time Taken Comments Blood Pressure 147/93 05/09/2024 2:02 PM CDT Pulse 77 05/09/2024 1:51 PM CDT Temperature 37.1 C (98.7 F) 05/09/2024 1:51 PM CDT Respiratory Rate 16 05/09/2024 1:51 PM CDT Oxygen Saturation 93% 05/09/2024 1:51 PM CDT Inhaled Oxygen Concentration - - Weight 98.7 kg (217 lb 9.6 oz) 05/09/2024 1:51 P M CDT Height 160 cm (5' 3) 10/05/2023 3:06 PM CDT Body Mass Index 38.55 10/05/2023 3:06 PM CDT Plan of Treatment Upcoming Encounters Date Type Department Care Team (Late st Contact Info) Description 11/12/2024 11:30 AM CDT Office Visit [facility] Oncology [facility] Hematology - [place] [address] [facility] [address] [place] [address] Dirk Chapin MD [address] [facility] [address] [place] [address] Health Maintenance Due Date Last Done Comments DIABETES ANNUAL FOOT EXAM 02/25/1986 DIABETES ANNUAL RETINAL EXAM 02/25/1986 DIABETES MICROALBUMIN ANNUAL SCREEN 02/25/1986 LDL CHOLESTEROL ANNUAL 02/25/1986 HEPATITIS B VACCINES (1 of 3 - 19+ 3-dose series) 02/25/1987 HPV/Cotest (21-29) 02/25/1989 CERVICAL CANCER SCREENING 02/25/1998 HPV/Cotest (30-65) 02/25/1998 PAP SMEAR 02/25/1998 COLORECTAL SCREENING 02/25/2013 Colorectal Cancer Screening 02/25/2013 FIT-DNA Q 3 years 02/25/2013 FIT/FOBT Q 1 year 02/25/2013 Flex Sig/CT Colonography Q 5 years 02/25/2013 DIABETES HBA1C Q 6 MONTHS 01/02/2018 07/02/2017 ZOSTER VACCINE (1 of 2) 02/25/2018 Medicare Advantage (DC) Preventative Visit/Annual Wellness Visit 02/22/2024 10/21/2023, 05/13/2022, 05/11/2021, Additional history exists BREAST CANCER SCREENING 09/05/2024 09/06/19 24, 09/06/2023, 08/20/2022, Additional history exists INFLUENZA VACCINE (#1) 2024 4, 12/13/2022, 02/05/2021, Additional history exists DTAP/TDAP/TD VACCINES (2 - T d or Tdap) 06/06/2029 06/07/2019 Insurance [employer] U[employer] DUAL COMPLETE PPO DSNP [facility] [id number] Care Teams Sap Solution Manager Consultant Relationship Specialty Start Date End Date Von Long MD [address] [place] [id number] PCP - General Emergency Medicine 05/09/20
--- OUTSIDE RECORDS SUMMARY | 2024-11-06 16:13 | XMS_ITS | Clinical Summary ---
Author Organization [facility] Address [address] [place] [phone] Care Team Providers Care Trimming Machine Operator Name Role Phone Keke Guzman RN Unavailable Unavailab Alexsandar Serra RN Unavailable Dorcas vailable Alexsandra Orozco RN Unavailable Dorcas vailable Von Long MD Primary Care Provider [phone] Allergies Active Allergy Reactions Criticality Noted Date Comments Iodinated Contrast Media Hives,Other (See comments) Medium 02/10/2017 Iohexol Hives,Itching Medium 05/28/2015 Other reaction(s): Hives Medications gabapentin (NEURONTIN) 300 mg capsule take 1 capsule by oral route 3 times every day 0 0 05/26/19 17 Active ergocalciferol (VITAMIN D) 50,000 unit capsule TAKE 1 CAPSULE BY MOUTH ONCE WEEKLY 04/01/19 19 Active meclizine (ANTIVERT) 25 mg tablet 1 tablet (25 mg total) daily Active HYDROcodone-aceta minophen (NORCO) 5-325 mg per tablet Take 1-2 tablets by mouth as needed 12/25/19 17 Active zolpidem CR (AMBIEN CR) 12.5 mg CR tablet 10 mg daily Activ e venlafaxine XR (EFFEXOR-XR) 150 mg 24 hr capsule Take 1 capsule (150 mg total) by mouth 06/21/19 19 Active amitriptyline (ELAVIL) 50 mg tablet 5 12/30/19 19 Active potassium chloride ER 10 mEq CR tablet 09/10/19 20 Active montelukast (SINGULAIR) 10 mg tablet TAKE 1 TABLET(10 MG) BY MOUTH EVERY NIGHT 30 tablet 3 10/21/19 21 Active phentermine 15 mg capsule Take by mouth daily 12/04/19 21 Active hydroCHLOROthiazi de (HYDRODIURIL) 12.5 mg tablet 01/24/20 21 Active rosuvastatin (CRESTOR) 10 mg tablet Take 1 tablet (10 mg total) by mouth daily 02/13/20 21 Active losartan (COZAAR) 25 mg tablet 4 tablets (100 mg total) 05/01/19 22 Active cyclobenzaprine (FLEXERIL) 10 mg tablet Take 1 tablet (10 mg total) by mouth nightly as needed 05/23/19 22 Active metoprolol XL (TOPROL-XL) 25 mg extended release tablet 05/17/19 22 Active verapamil PM (VERELAN PM) 300 mg 24 hr capsule Take by mouth daily 10/02/19 22 Active fluticasone propionate (FLONASE) 50 mcg/actuation nasal spray SHAKE LIQUID AND USE 1 SPRAY IN EACH NOSTRIL TWICE DAILY 16 g 5 04/14/19 23 Active Symbicort 160-4.5 mcg/actuation inhaler INHALE 2 PUFFS BY MOUTH TWICE DAILY. RINSE MOUTH WITH WATER AFTER USE. DO NOT SWALLOW 10.2 g 3 10/19/19 23 Active losartan (COZAAR) 100 mg tablet Take 1 tablet (100 mg total) by mouth daily 11/07/19 23 Active cefdinir (OMNICEF) 300 mg capsule 01/11/20 23 Active ROPivacaine (NAROPIN) 5 mg/mL (0.5 %) injection Ac tive triamcinolone (Kenalog) 10 mg/mL injection Acti ve rizatriptan (MAXALT) 10 mg tabletIndications :Migraine Take 1 tablet (10 mg total) by mouth as needed for migraine May repeat in 2 hours if unresolved. Do not exceed 30 mg in 24 hours. 9 tablet 3 02/22/19 24 Active aspirin 81 mg chewable tablet Take 1 tablet (81 mg total) by mouth daily Active rosuvastatin (CRESTOR) 20 mg tablet Take 1 tablet (20 mg total) by mouth daily 05/04/19 24 Active ondansetron ODT (ZOFRAN-ODT) 4 mg disintegrating tabletIndications :Chronic migraine without aura without status migrainosus, not intractable,Nause a Take 1 tablet (4 mg total) by mouth every 8 (eight) hours as needed for nausea or vomiting 20 tablet 3 09/07/19 24 Active doxycycline hyclate 100 mg capsule Take 1 tablet/capsule (100 mg total) by mouth 2 (two) times a day 12/30/19 24 Active ubrogepant (Ubrelvy) 50 mg tablet Take 1 tablet (50 mg total) by mouth once as needed for migraine May repeat dose once in 2 hours if no relief. Do not exceed 2 doses in 24 hours. 10 tablet 3 01/23/20 24 025 Active albuterol HFA (PROVENTIL HFA,VENTOLIN HFA,PROAIR HFA) 90 mcg/actuation inhaler Inhale 2 puffs every 6 (six) hours as needed for wheezing for wheezing 6.7 g 5 07/21/19 25 Active albuterol 2.5 mg /3 mL (0.083 %) nebulizer solution USE 1 VIAL IN NEBULIZER EVERY 6 HOURS - As Needed For Wheezing Or Shortness of Breath 120 mL 3 08/08/19 25 Active meloxicam (MOBIC) 15 mg tabletIndications :Osteoarthritis Take 1 tablet (15 mg total) by mouth daily for 90 doses 30 tablet 2 09/12/19 25 025 Active cyanocobalamin (Vitamin B-12) 500 mcg tablet cyanocobalamin (vitamin B-12) 500 mcg tablet Active ferrous sulfate (FeosoL) 325 mg (65 mg of elemental iron) tablet Feosol 325 mg (65 mg iron) tablet Active topiramate (TOPAMAX) 50 mg tablet Take 1 tablet (50 mg total) by mouth 2 (two) times a day 60 tablet 2 11/03/19 25 026 Active topiramate (TOPAMAX) 50 mg tablet Take 1 tablet (50 mg total) by mouth 2 (two) times a day 60 tablet 11 01/23/20 24 025 Disconti nued(Lexio rder) Active Problems Problem Noted Date Diagnosed Date [...] Toprol XL. Fibromyalgia 02/10/2017 02/05/2021 Morbid obesity ([facility]) 05/25/2016 Overview (07/16/2016): Morbid obesity Assessment & Plan (06/25/2020 3:20 PM CDT): She was encouraged to lose weight . Emphysema, unspecified 07/08/201502/05 Nicotine dependence, unspeci fied, uncomplicated 07/08/2015 02/05/2021 Encounters Date Type Department Care Team Description 11/05/2024 3:15 PM CDT Office Visit [facility] Neurosurgery Clinic [facility] [address], [address] [place] [address] Mannie Workman PA Degeneration of intervertebral disc of lumbar region without discogenic back pain or lower extremity pain (Primary Dx); Chronic bilateral low back pain with bilateral sciatica; Lumbosacral spondylosis without myelopathy; BMI 38.0-38.9,adult 11/02/2024 Telephone [facility] Neurology [address] [facility] [place] [address] Ellen Pickens NP 10/31/2024 1:00 PM CDT Office Visit [facility] Obstetrical Gynecology [address] [facility] [address] [place] [address] Melony Hightower MD Well woman exam with routine gynecological exam (Primary Dx) 10/17/2024 Telephone [facility] Orthopedics and Sports Medicine [address] [place] [address] [address] [place] [address] Felisa Roberson NP 10/09/2024 Telephone [facility] Neurosurgery Clinic [address] [place] [address] [address] [place] [address] Eliana Lino RN 10/09/2024 Telephone [facility] Orthopedics and Sports Medicine [address] [place] [address] [address] [place] [address] Felisa Roberson NP 10/05/2024 2:14 PM CDT - 10/05/2024 11:59 PM CDT Hospital Encounter [facility] MRI [address] [place] [address] Chronic right-sided low back pain with right-sided sciatica; Lumbar facet arthropathy, multilevel, greatest at L4-L5, L5-S1; Degeneration of intervertebral disc of lumbar region, multilevel with discogenic back pain and lower extremity pain; Spondylolisthesis of lumbar region, grade 1 L4 on L5 Discharge Disposition: Discharge to home or self care 10/04/2024 2:10 PM CDT - 10/04/2024 11:59 PM CDT Hospital Encounter [facility] Respiratory [address] [place] [address] Multiple pulmonary nodules; Chronic cough; Cigarette nicotine dependence in remission; Moderate persistent asthma without complication; BMI 38.0-38.9,adult Discharge Disposition: Discharge to home or self care 09/26/2024 Results Follow-Up [facility] Obstetrical Gynecology [address] [place] [address] Melony Hightower MD Screening Mammogram Bilateral W Slim 09/25/2024 2:40 PM CDT - 09/25/2024 11:59 PM CDT Hospital Encounter [facility] Breast Imaging [address] [place] [address] Screening mammogram, encounter for Discharge Disposition: Discharge to home or self care 09/21/2024 12:51 PM CDT - 09/21/2024 11:59 PM CDT Hospital Encounter [facility] Diagnostic Imaging [address] [place] [address] Primary osteoarthritis of right hip; Right hip pain Discharge Disposition: Discharge to home or self care 09/11/2024 2:00 PM CDT Office Visit [facility] Orthopedics and Sports Medicine [address] [place] [phone] Marysol Vo PA Left hip pain (Primary Dx); Primary osteoarthritis of right hip; Right hip pain; Greater trochanteric bursitis of right hip 09/11/2024 1:44 PM CDT - 09/11/2024 11:59 PM CDT Hospital Encounter [facility] Orthopedic and Neuro Center Diag Imaging [address] [place] [address] Right hip pain Discharge Disposition: Discharge to home or self care 09/06/2024 12:30 PM CDT Procedure visit [facility] Medical [facility] Neurology [address] [place] [phone] Ketan Francisco MD Intractable chronic migraine without aura and without status migrainosus 08/21/2024 2:06 PM CDT - 08/21/2024 11:59 PM CDT Hospital Encounter [facility] Orthopedic and Neuro Center Diag Imaging [address] [place] [address] Lumbar pain Discharge Disposition: Discharge to home or self care 08/21/2024 1:30 PM CDT Office Visit [facility] Orthopedics and Sports Medicine [address] [place] [phone] Kadonsky, Felisa M., TRANSIT 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 Chronic right-sided low back pain with right-sided sciatica; Spinal stenosis, lumbar region,moderate/sever e L4-L5 with neurogenic claudication; Neural foraminal stenosis of lumbar spine, multilevel, severe bilateral L5-S1; Protrusion of lumbar intervertebral disc, L3-L4, L4-L5; Lumbar facet arthropathy, multilevel; Degeneration of intervertebral disc of lumbar region, multilevel moderate/severe L5-S1 with discogenic back pain and lower extremity pain; Spondylolisthesis of lumbar region, grade 1 L4 on L5; Myofascial pain syndrome of lumbar spine; Degeneration of intervertebral disc of lumbar region, unspecified whether pain present from Last 3 Months Immunizations Immunization Administration [...] CARPAL TUNNEL RELEASE 12/22/2016 - 01/20/2017 Right FLUORO GUIDED INJECTION HIP RIGHT 09/21/2024 Right Medical History Medical History Date Comments Anxiety Arthritis Asthma Chronic pain disorder Depression Diabetes mellitus (HCC) Fibromyalgia, primary Hypertension Low back pain Neck pain Peripheral neuropathy Sleep apnea Lumbar facet arthropathy DDD (degenerative disc disease), lumbar Spondylolisthesis, lumbar region, L4-L5 Family History Medical History Relation Name Comments Lung cancer Father Heart disease Mother Breast cancer Sister 1 Patrizia Lung cancer Sister 1 Patrizia Breast cancer Sister 2 Ovarian cancer Neg Hx Uterine cancer Neg Hx Relation Name Status Comments Father Mother Sister 1 Patrizia Alive Sister 2 Social History Tobacco Use Types Packs/Day Years Used Date Smoking Tobacco: Former Cigarettes 2 2015 Smokeless Tobacco: Never Tobacco Cessation:Counseling Given: Not Answered Alcohol Use Standard Drinks/Week Comments Yes 1 [...] on file Legal Sex Female 1:27 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 Gender Identity Not on file Sexual Orientation Not on file Obstetrics History Para Term AB IAB SAB Ectopic Multiple Livin g Live Births 1 1 Date Outcome GA Total Labor Labor//3rd Weight Sex Type Anes PTL Cindy A1 A5 Name Clin Term Comments Last Filed Vital Signs Vital Sign Reading Time Taken Comments Blood Pressure 122/70 10/31/2024 12:59 PM CDT Pulse 77 03/26/2024 3:06 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 Temperature 36.3 C (97.4 F) 03/26/2024 3:06 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 Respiratory Rate 20 03/26/2024 3:06 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 Oxygen Saturation 98% 11/05/2024 2:52 PM CDT Inhaled Oxygen Concentration - - Weight 99.8 kg (220 lb) 11/05/2024 2:52 PM CDT Height 160 cm (5' 2.99) 11/05/2024 2:52 PM CDT Body Mass Index 38.98 11/05/2024 2:52 PM CDT Plan of Treatment Health Maintenance [...] 10/08/2014 Zoster Vaccine (1 of 2) 02/25/2018 Cervical Cancer Screening 10/20/20242023, 10/21/2023, 05/07/2020 Influenza Vaccine (#1) 2024 , 12/13/2022, 02/05/2021, Additional history exists Lung Cancer Screening 01/17/2025 01/17/2024 , 01/10/2023, 11/07/2021 Breast Cancer Screening-Mammogram 09/25/2025 09/25/2024, 09/06/2023, 08/20/2022, Additional history exists Regular Well Visit/Exam 18-64 10/31/2025, 10/21/2023, 05/13/2022, Additional history exists DTaP/Tdap/Td Vaccine (2 - Td or Tdap) 06/06/2029 06/07/2019 Goals Goal Patient Goal Type Associated Problems Recent Progress Patient-Stated? Author Being active Exercise Keke Mcfadden, RN Note: Patient will be more active by: Procedures Procedure Name Priority Date/Time Associated Diagnosis Comments MRI LUMBAR SPINE WO CONTRAST Schedule Routine, Read Routine (OP Routine) 10/05/2024 3:39 PM CDT Chronic right-sided low back pain with right-sided sciatica Lumbar facet arthropathy, multilevel, greatest at L4-L5, L5-S1 Degeneration of intervertebral disc of lumbar region, multilevel with discogenic back pain and lower extremity pain Spondylolisthesis of lumbar region, grade 1 L4 on L5 PULMONARY FUNCTION TEST (PFT) Routine 10/04/2024 3:15 PM CDT Multiple pulmonary nodules Chronic cough Cigarette nicotine dependence in remission Moderate persistent asthma without complication BMI 38.0-38.9,adult SCREENING MAMMOGRAM BILATERAL W SLIM Schedule Routine, Read Routine (OP Routine) 09/25/2024 3:01 PM CDT Screening mammogram, encounter for FLUORO GUIDED INJECTION HIP RIGHT Schedule Routine, Read Routine (OP Routine) 09/21/2024 1:44 PM CDT Primary osteoarthritis of right hip Right hip pain XR HIP RIGHT W PELVIS 2 OR 3 VIEWS Schedule Routine, Read Routine (OP Routine) 09/11/2024 1:51 PM CDT Right hip pain BOTOX INJECTION Routine 09/06/2024 12:30 PM CDT Intractable chronic migraine without aura and without status migrainosus XR SPINE LUMBAR W BENDING 6 OR MORE VIEWS Schedule Routine, Read Routine (OP Routine) 08/21/2024 2:21 PM CDT Lumbar pain GA INJECTION SINGLE/WEB RETAILER TRIGGER POINT 1/2 MUSCLES Routine 08/21/2024 1:30 PM CDT Myofascial pain syndrome of lumbar spine CT LUNG CANCER SCREENING Schedule Routine, Read Routine (OP Routine) 01/17/2024 1:37 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 Personal history of nicotine dependence HIGH RISK HPV DNA DETECTION WITH GENOTYPING Routine 10/21/2023 2:00 PM CDT Well woman exam with routine gynecological exam TNI WITH LIPID PANEL Routine 04/30/2016 3:11 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 HEMOGLOBIN A1C Routine 10/08/2014 11:00 AM CDT from Last 3 Months or Most Recently Relevant to Health Maintenance Results * MRI Lumbar Spine WO Contrast (10/05/2024 3:39 PM CDT) Anatomical Region Laterality Modality Spine N/A Magnetic Resonan ce 10/08/2024 11:0 8 AM CDT Narrative 10/08/2024 11:20 AM CDT EXAM DESCRIPTION: MRI LUMBAR SPINE WO CONTRAST REASON FOR STUDY: Lumbar radiculopathy, symptoms persist with > 6 wks treatment Patient stated low back and right hip pain for a couple of years. No surgery. NO injury TECHNIQUE: Sagittal and Axial imaging includes T1, T2, STIR sequences. COMPARISON: Lumbar spine radiographs dated 08/21/2024. FINDINGS: SEGMENTATION: 5 [id number]-[id number] lumbar type vertebral bodies. ALIGNMENT: The anterior-posterior alignment is similar when compared to the previous lumbar spine radiographs. The possible right L5 pars defect questioned on the lumbar spine radiographs dated 08/21/2024 is not well evaluated by MRI technique. A CT can be obtained to better assess the bony morphology as clinically indicated. VERTEBRAE: No acute compression fracture in the lumbar spine. Multilevel endplate degenerative changes and marginal spur formation. The L5-S1 opposing endplate STIR hyperintense signal is likely degenerative in nature as there is no significant adjacent soft tissue inflammation. DISC HEIGHT: Multilevel disc desiccation and height loss ranging up to moderate to severe at L5-S1. HARDWARE: None in the spine. CORD/CAUDA: Conus medullaris terminates at L1. LOWER THORACIC: Incompletely imaged. Multilevel degenerative changes without high-grade spinal canal stenosis. INDIVIDUAL DISC LEVELS: L1-L2: Disc bulge with bilateral facet arthropathy and trace facet joint effusion. No significant spinal canal stenosis. Mild left and no significant right neural foraminal narrowing. L2-L3: Disc bulge with marginal spur formation eccentric to the left neural foramen. Thickened ligamentum flavum and facet arthropathy. Bilateral facet joint effusion. Mild spinal canal stenosis. Lateral recess effacement on both sides. Mild right and cgby-xl-mvolvqfj left neural foraminal narrowing. L3-L4: Disc bulge with marginal spur formation eccentric to the left neural foramen. Superimposed small central disc protrusion. Thickened ligamentum flavum and facet arthropathy. Mild spinal canal stenosis. Lateral recess narrowing on both sides. Fees-wm-woygwztb bilateral neural foraminal narrowing. L4-L5: Disc bulge with marginal spur formation. Superimposed central disc protrusion. Thickened ligamentum flavum and facet arthropathy. Moderate to severe spinal canal stenosis and lateral recess narrowing on both sides. Moderate right and mild left neural foraminal narrowing. Disc and facet arthropathy contacting the exiting right L4 nerve root. L5-S1: Disc bulge with marginal spur formation. Thickened ligamentum flavum and facet arthropathy. Mild spinal canal stenosis. Lateral recess effacement on both sides with disc/marginal spur and facet arthropathy contacting the descending S1 nerve roots. Severe bilateral neural foraminal narrowing with disc/marginal spur and facet arthropathy contacting the exiting L5 nerve roots. VISUALIZED UPPER ABDOMEN: Left renal rounded T2 hyperintense signal is incompletely characterized on this MRI and could reflect a cyst. IMPRESSION: 1. Lumbar disc degeneration ranging up to moderate to severe with thickened ligamentum flavum and facet arthropathy as described. The spinal canal narrowing is most noticeable at L4-L5. 2. Neural foraminal narrowing is most noticeable at L4-L5 and L5-S1 ranging up to moderate to severe. 3. Other findings as above. THIS IS AN ELECTRONICALLY VERIFIED FINAL REPORT 10/08/2024 11:20 AM - Electronically signed by Harinder ESCUDERO T: Report ID: [id number] Reading Location: [place] [address] Procedure Note Harinder Lacy, DO - 10/08/2024 EXAM DESCRIPTION: MRI LUMBAR SPINE WO CONTRAST REASON FOR STUDY: Lumbar radiculopathy, symptoms persist with > 6 wks treatment Patient stated low back and right hip pain for a couple of years. Nosurgery. NO injury TECHNIQUE: Sagittal and Axial imaging includes T1, T2, STIR sequences. COMPARISON: Lumbar spine radiographs dated 08/21/2024. FINDINGS: SEGMENTATION: 5 pvm-fpt-uanzyrw lumbar type vertebral bodies. ALIGNMENT: The anterior-posterior alignment is similar when compared tothe previous lumbar spine radiographs. The possible right L5 pars defect questioned on the lumbar spine radiographs dated 08/21/2024 is not well evaluated by MRI technique. A CT can be obtained to better assess thebony morphology as clinically indicated. VERTEBRAE: No acute compression fracture in the lumbar spine.Multilevel endplate degenerative changes and marginal spur formation. The L5-[id number] endplate STIR hyperintense signal is likely degenerative in nature asthere is no significant adjacent soft tissue inflammation. DISC HEIGHT: Multilevel disc desiccation and height loss ranging up to moderate to severe at L5-S1. HARDWARE: None in the spine. CORD/CAUDA: Conus medullaris terminates at L1. LOWER THORACIC: Incompletely imaged. Multilevel degenerative changes without high-grade spinal canal stenosis. INDIVIDUAL DISC LEVELS: L1-L2: Disc bulge with bilateral facet arthropathy and trace facet joint effusion. No significant spinal canal stenosis. Mild left and nosignificant right neural foraminal narrowing. L2-L3: Disc bulge with marginal spur formation eccentric to the leftneural foramen. Thickened ligamentum flavum and facet arthropathy. Bilateralfacet joint effusion. Mild spinal canal stenosis. Lateral recess effacement on both sides. Mild right and eccw-bi-rlpqagct left neural foraminalnarrowing. L3-L4: Disc bulge with marginal spur formation eccentric to the leftneural foramen. Superimposed small central disc protrusion. Thickenedligamentum flavum and facet arthropathy. Mild spinal canal stenosis. Lateral recess narrowing on both sides. Mvfj-ap-zwdxffnx bilateral neural foraminal narrowing. L4-L5: Disc bulge with marginal spur formation. Superimposed central disc protrusion. Thickened ligamentum flavum and facet arthropathy. Moderateto severe spinal canal stenosis and lateral recess narrowing on both sides. Moderate right and mild left neural foraminal narrowing. Disc and facet arthropathy contacting the exiting right L4 nerve root. L5-S1: Disc bulge with marginal spur formation. Thickened ligamentumflavum and facet arthropathy. Mild spinal canal stenosis. Lateral recesseffacement on both sides with disc/marginal spur and facet arthropathy contacting the descending S1 nerve roots. Severe bilateral neural foraminal narrowingwith disc/marginal spur and facet arthropathy contacting the exiting L5 nerve roots. VISUALIZED UPPER ABDOMEN: Left renal rounded T2 hyperintense signal is incompletely characterized on this MRI and could reflect a cyst. IMPRESSION: 1. Lumbar disc degeneration ranging up to moderate to severe withthickened ligamentum flavum and facet arthropathy as described. The spinal canal narrowing is most noticeable at L4-L5. 2. Neural foraminal narrowing is most noticeable at L4-L5 and L5-E0gtjmzwj up to moderate to severe. 3. Other findings as above. THIS IS AN ELECTRONICALLY VERIFIED FINAL REPORT 10/08/2024 11:20 AM - Electronically signed by Harinder ESCUDERO T: Report ID: [id number] Reading Location: [place] [address] Felisa Roberson TRANSIT WORKER IMG MRI PROCEDURES Final Re sult * Pulmonary Function Test - (10/04/2024 3:15 PM CDT) [facility] FVC PRE 2.37 L 10/04/2024 4:09 PM CDT [facility] FEV1 PRE 1.72 L 10/04/2024 4:09 PM CDT [facility] [id number] 72.82 % 10/04/2024 4:09 PM CDT [facility] VJO33-07% PRE 1.27 L/s 10/04/2024 4:09 PM CDT [facility] PEF PRE 3.96 L/s 10/04/2024 4:09 PM CDT [facility] DLCOc SB 16.31 ml/(min*mm Hg) 10/04/2024 4:09 PM CDT [facility] DLCO/VA PRE 5.30 ml/(min*mm Hg*L) 10/04/2024 4:09 PM CDT [facility] VA 3.08 L 10/04/2024 4:09 PM CDT [facility] TLC PRE 4.71 L 10/04/2024 4:09 PM CDT [facility] VC PRE 2.57 L 10/04/2024 4:09 PM CDT [facility] IC PRE 2.06 L 10/04/2024 4:09 PM CDT [facility] FRC PL PRE 2.61 L 10/04/2024 4:09 PM CDT [facility] ERV PRE 0.47 L 10/04/2024 4:09 PM CDT [facility] RV PRE 2.14 L 10/04/2024 4:09 PM CDT [facility] RAW PRE 4.84 cmH2O*s/L 10/04/2024 4:09 PM CDT [facility] VTG 3.00 L 10/04/2024 4:09 PM T [facility] Anatomical Region Laterality Modality PFT 10/04/2024 2:17 PM CDT Impressions 10/08/2024 4:30 PM CDT 1. Spirometry is normal. 2. Lung volumes are normal. 3. Mild diffusion impairment. 4. 6 minute walk test performed. Patient ambulated 1230 ft and did not complain of shortness of breath. Patient maintained oxygen saturation 95-98%. Patient did not require supplemental oxygen with exertion. Clinical correlation is advised. Electronically signed by Rodo Wilson, Pulmonary & Critical Care Narrative 10/08/2024 4:30 PM CDT PULMONARY FUNCTION TESTS Paulina Odell 54 y.o. 10/08/2024 INTERPRETATION Please see technologist's comments mentioned in attached results report. SPIROMETRY: Pre bronchodilator FEV1 is 80 % predicted, FVC is 88 % predicted, FEV1/FVC is 73 Bronchodilator response: Not assessed Inspection of the patient's flow-volume loops shows: Normal configuration of the inspiratory and expiratory limbs. LUNG VOLUMES: Lung volumes by body plethysmography: TLC is 99 % predicted, RV is 120 % predicted DLCO: Unadjusted for hemoglobin and carboxyhemoglobin DLCO is 72 % predicted Kelton Lockett MD PFT ORDERABLES Final Resul t * Screening Mammogram Bilateral W Slim (09/25/2024 3:01 PM CDT) Anatomical Region Laterality Modality Breast Bilateral Mammography Impressions 09/25/2024 3:25 PM CDT Bilateral No evidence of malignancy in either breast. OVERALL BI-RADS FINAL ASSESSMENT: 1 - Negative RECOMMENDATION: Recommend bilateral annual screening mammography. Narrative 09/25/2024 3:25 PM CDT EXAMINATION: Screening Mammogram Bilateral W Slim: 09/25/2024 COMPARISON: Relevant prior studies available at the time of interpretation were reviewed, including the most recent mammogram on: 09/06/2023. TECHNIQUE: Mammography was performed with 2D and digital breast tomosynthesis (DBT) images. CAD was utilized. BREAST PARENCHYMAL COMPOSITION: The breasts are almost entirely fatty. FINDINGS: Bilateral There is no suspicious mass, calcification, or architectural distortion in either breast. Melony Hightower MD IMG MAMMO PROCEDURES Caitlyn l Result * FL Fluoro Guided Injection Hip Right (09/21/2024 1:44 PM CDT) Anatomical Region Laterality Modality Hip Right Computed Radiogr aphy, Computed Radiography 09/21/2024 1:39 PM CDT Narrative 09/21/2024 1:51 PM CDT EXAM DESCRIPTION: FL FLUORO GUIDED INJECTION HIP RIGHT REASON FOR STUDY: Hip pain, arthritis or infection suspected, abnormal xray Pain in right hip for many years. Hip pain. COMPARISON: 09/11/2024 RADIATION DOSE: Dose: 0.8 mGy Reference Air Kerma (Ka,r) TECHNIQUE/FINDINGS: Risk, benefits, and alternatives of the procedure were explained to the patient and informed consent was obtained. The area was prepped and draped in the usual sterile fashion. 5 mL of 1% lidocaine was used as local anesthetic. Utilizing fluoroscopic guidance, a 22-gauge spinal needle was directed into the hip joint space. Air was injected to confirm intra-articular placement. Air was used of instead of contrast due to a contrast allergy. An image demonstrating intra-articular contrast was saved to PACS. Then 40 mg of depo-medrol and 3 mL of 0.25% bupivacaine was injected. The needle was removed and a bandage was placed. IMPRESSION: Successful right hip steroid injection. THIS IS AN ELECTRONICALLY VERIFIED FINAL REPORT 09/21/2024 1:51 PM - Electronically signed by Kasi Mayo M.D., MM T: Report ID: [id number] Reading Location: [place] [address] Procedure Note Kasi Mayo MD - 09/21/2024 EXAM DESCRIPTION: FL FLUORO GUIDED INJECTION HIP RIGHT REASON FOR STUDY: Hip pain, arthritis or infection suspected, abnormalxray Pain in right hip for many years. Hip pain. COMPARISON: 09/11/2024 RADIATION DOSE: Dose: 0.8 mGy Reference Air Kerma (Ka,r) TECHNIQUE/FINDINGS: Risk, benefits, and alternatives of the procedure were explained to the patient and informed consent was obtained. The area was prepped anddraped in the usual sterile fashion. 5 mL of 1% lidocaine was used as localanesthetic. Utilizing fluoroscopic guidance, a 22-gauge spinal needle was directedinto the hip joint space. Air was injected to confirm intra-articularplacement. Air was used of instead of contrast due to a contrast allergy. An image demonstrating intra-articular contrast was saved to PACS. Then 40 mg of depo-medrol and 3 mL of 0.25% bupivacaine was injected. The needle was removed and a bandage was placed. IMPRESSION: Successful right hip steroid injection. THIS IS AN ELECTRONICALLY VERIFIED FINAL REPORT 09/21/2024 1:51 PM - Electronically signed by Kasi Mayo M.D., MM T: Report ID: [id number] Reading Location: [id number] [facility] IMG FLUOROSCOPY PROCEDURES Final Result * XR Hip Right 2 or 3 Views W Pelvis (09/11/2024 1:51 PM CDT) Anatomical Region Laterality Modality Lower Extremities, Hip, Pelvis Right C omputed Radiography 09/16/2024 1:35 PM CDT Narrative 09/16/2024 1:59 PM CDT EXAM DESCRIPTION: 1. XR HIP RIGHT 2 OR 3 VIEWS W PELVIS REASON FOR STUDY: pain Groin pain x 2 plus mths, NKI FINDINGS: Two views submitted with comparison 04/30/2016. No acute fracture. Alignment is normal. Mild bilateral hip osteoarthritis. Inferior lumbar degenerative disc disease with facet osteoarthritis. IMPRESSION: 1. Mild bilateral hip osteoarthritis. THIS IS AN ELECTRONICALLY VERIFIED FINAL REPORT 09/16/2024 1:59 PM - Electronically signed by Vicente Eldridge M.D. T: Report ID: [id number] Reading Location: [id number] Procedure Note Vicente Eldridge MD - 09/16/2024 EXAM DESCRIPTION: 1. XR HIP RIGHT 2 OR 3 VIEWS W PELVIS REASON FOR STUDY: pain Groin pain x 2 plus mths, NKI FINDINGS: Two views submitted with comparison 04/30/2016. No acute fracture. Alignment is normal. Mild bilateral hiposteoarthritis. Inferior lumbar degenerative disc disease with facet osteoarthritis. IMPRESSION: 1. Mild bilateral hip osteoarthritis. THIS IS AN ELECTRONICALLY VERIFIED FINAL REPORT 09/16/2024 1:59 PM - Electronically signed by Vicente Eldridge M.D. T: Report ID: [id number] Reading Location: [id number] [facility] IM XR PROCEDURES Final Result * Botox Injection (09/06/2024 12:30 PM CDT) Narrative Lizzette Dunn - 09/06/2024 12:30 PM CDT Lizzette Dunn 09/10/2024 3:58 PM Botox Injection Performed by: Ketan Francisco MD Authorized by: Ketan Francisco MD [place] Protocol: Consent Given by: Patient Timeout: prior to procedure the correct patient, procedure, and site was verified Procedure Details - Botox Injection: Procedure Details: See Botox flow sheet for details on injection sites and amounts. This can be found in Media and labeled BLVLE [email or web address].PROCEDURE NOTES. us Ketan Francisco MD IN CLINIC/BEDSIDE ORDERABLES F inal Result * XR Spine Lumbar W Bending 6 or More Views (08/21/2024 2:21 PM CDT) Anatomical Region Laterality Modality Spine N/A Computed Radiogr aphy 08/25/2024 1:15 AM CDT Narrative 08/25/2024 1:20 AM CDT EXAM DESCRIPTION: XR SPINE LUMBAR W BENDING 6 OR MORE VIEWS REASON FOR STUDY: pain LBP radiates into rt hip x 6 plus mths, NKI TECHNIQUE: Six radiographic views of the lumbar spine. COMPARISON: None. FINDINGS: ALIGNMENT: There is minimal, approximately 4 mm, of anterolisthesis at L4 on L5 which appears fixed in neutral, flexion and extension positioning. HARDWARE: None. VERTEBRAE: There are five lumbarized vertebral bodies. Vertebral bodies are normal in height. There is diffuse facet arthropathy, greatest at L4-L5 and L5-S1. There is chronic-appearing spondylolysis on the right at L5. The spinous processes are intact. DISCS: There is mild disc height loss at L2-L3 and below. SOFT TISSUES: No significant abnormalities seen. IMPRESSION: 1. Mild degenerative disc disease and facet arthropathy. 2. 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 3. Grade 1 spondylolisthesis at L4 on L5, fixed in neutral, flexion and extension positioning, secondary to facet arthropathy. THIS IS AN ELECTRONICALLY VERIFIED FINAL REPORT 08/25/2024 1:20 AM - Electronically signed by Jaymie Walker M.D. SN T: Report ID: [id number] Reading Location: [id number] Procedure Note Jaymie Walker MD - 08/25/2024 EXAM DESCRIPTION: XR SPINE LUMBAR W BENDING 6 OR MORE VIEWS REASON FOR STUDY: pain LBP radiates into rt hip x 6 plus mths, NKI TECHNIQUE: Six radiographic views of the lumbar spine. COMPARISON: None. FINDINGS: ALIGNMENT: There is minimal, approximately 4 mm, ofanterolisthesis at L4 on L5 which appears fixed in neutral, flexion and extensionpositioning. HARDWARE: None. VERTEBRAE: There are five lumbarized vertebral bodies. Vertebralbodies are normal in height. There is diffuse facet arthropathy, greatest atL4-L5 and L5-S1. There is chronic-appearing spondylolysis on the right at L5.The spinous processes are intact. DISCS: There is mild disc height loss at L2-L3 and below. SOFT TISSUES: No significant abnormalities seen. IMPRESSION: 1. Mild degenerative disc disease and facet arthropathy. 2. 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 3. Grade 1 spondylolisthesis at L4 on L5, fixed in neutral, flexion and extension positioning, secondary to facet arthropathy. THIS IS AN ELECTRONICALLY VERIFIED FINAL REPORT 08/25/2024 1:20 AM - Electronically signed by Jaymie Walker M.D. SN T: Report ID: [id number] Reading Location: [place] [address] Felisa Roberson NP IMG XR PROCEDURES Final Res ult * GA INJECTION SINGLE/WEB RETAILER TRIGGER POINT 1/2 MUSCLES (08/21/2024 1:30 PM CDT) Narrative Felisa Roberson NP - 08/21/2024 1:30 PM CDT Felisa Roberson NP 10/08/2024 7:34 PM Trigger Point Injection Performed by: Felisa Roberson NP Authorized by: Felisa Roberson NP Consent Given by: Patient Site marked: the procedure site was marked Timeout: prior to procedure the correct patient, procedure, and site was verified Consent obtained:: Verbal Risks discussed, including, but not limited to:: Pain Alternatives discussed:: Alternative treatment Site/side marked: Yes Indications: Pain Location: R lumbar paraspinal and R gluteus stacie Local anesthetic: Ethyl chloride spray Ultrasound guidance: No Needle size: 22 G Number of muscles: 1 or 2 Approach: Posterior Medications: 6 mL lidocaine 10 mg/mL (1 %); 120 mg triamcinolone 40 mg/mL Patient tolerance: Patient tolerated the procedure well with no immediate complications Felisa Roberson NP IN CLINIC/BEDSIDE ORDERABLE S Final Result * CT Lung Cancer Screening (01/17/2024 1:37 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) Anatomical Region Laterality Modality Chest N/A Computed Tomogra phy 01/20/2024 9:11 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 Narrative 01/20/2024 9:14 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 EXAM DESCRIPTION: CT LUNG CANCER SCREENING REASON [...] Sander Vance M.D. BS T: Report ID: [id number] Reading Location: [id number] Procedure Note Sander Vance MD - 01/20/2024 [...] Sander Vance M.D. BS T: Report ID: [id number] Reading Location: [place] [address] Kelton Lockett MD [facility] [place] PROCEDURES Final Res ult * High Risk HPV DNA Detection with Genotyping (Molecular component) (10/21/2023 2:00 PM CDT) HPV HR 16 Not Detected Not Detected [facility] Comment:Testing performed by : [facility], [address] [place] [address] HPV HR 18 Not Detected Not Detected [facility] Comment:Testing performed by : [facility], [address] [place]., [address] HPV HR Non 16/18 Not Detected Not [...] this test have been verified by the [facility] Molecular Infectious Disease laboratory. Correlate with separately reported cytology results, as applicable. Interpretive data last revised 22 Testing performed by: [facility], [address] [place] [address] Endocervical 10/21/2023 2:00 PM CDT 10/25/2023 5:37 PM CDT Narrative MAGUE - 10/25/2023 10:43 PM CDT Clinical history and diagnosis->05/07/20 wnl hpv-neg Number of vials->1 Testing type->Screening Last menstrual period (date if known)->PM Imani Almanzar TRANSIT WORKER LAB BODY FLUIDS AND STOOLS O RDERABLES Final Result [facility] [address] [facility] Department [place] [address] [facility] * (ABNORMAL) TNI with LIPID PANEL (04/30/2016 3:11 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) Troponin I < 0.300 0.000 - 0.300 ng/mL 04/30/2016 4:22 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 [email or web address] HISTORICAL RESULTS Comment: Reference using CATHERINE Chemiluminescence Negative: Repeat in 4-6 hours as indicated. Triglycerides 98 0 - 199 mg/dL 04/30/2016 4:25 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 [email or web address] HISTORICAL RESULTS Comment:12 hr pc highly tiffany mmended for Triglyceride Cholesterol 146 0 - 199 mg/dL 04/30/2016 4:25 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 [email or web address] HISTORICAL RESULTS Comment: Borderline: 200-239 High Risk: >239 HDL Cholesterol 39(L) 40 - 60 mg/dL 04/30/2016 4:25 PM [email or web address] HISTORICAL RESULTS Comment: Major Risk < 40 mg/dL Moderate Risk 40-60 mg/dL Negative Risk > 60 mg/dL LDL Cholesterol, Calc 87 0 - 130 mg/dL 04/30/2016 4:25 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 [facility] HISTORICAL RESULTS Comment:High Risk > 159 mg/d L Cholesterol/HDL Ratio 3.7 04/30/2016 4:25 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 [facility] HISTORICAL RESULTS Comment: Cholesterol / HDL Ratio 3.5:1 or less is desirable. Cholesterol / HDL Ratio greater than 5:1 is considered higher risk for developing heart disease. 04/30/2016 3:11 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 04/30/2016 3:57 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 us Vicente Denis LAB BLOOD ORDERABLES Fi nal Result Performing Organization Address [facility] de Phone Number [facility] HISTORICAL RESULTS * Hemoglobin A1c (10/08/2014 11:00 AM CDT) Hemoglobin A1c % 5.2 4.8 - 5.9 % Comment: [place] [employer] recommends that the goal of therapy should be an A1C hemoglobin of <7%. Reevaluate the treatment regimen in patients with an A1C >8%. 10/08/2014 11:0 0 AM CDT 10/08/2014 11:19 AM CDT Carley Burrows MD LAB BLOOD ORDERABLES Fin al Result Performing Organization Address [facility] Co de Phone Number [facility] HISTORICAL RESULTS from Last 3 Months or Most Recently Relevant to Health Maintenance Insurance IDPA IDPA [address] [place] [id number] [facility] MEDICARE ADVANTAGE IDPA [facility] MEDICARE ADVANTAGE Care Teams Trimming Machine Operator Relationship Specialty Start Date End Date Von Long MD PCP - General 02/09/19 Keke Guzman RN Registered Nurse 02/10/17 Alexsandra Orozco, RN Registered Nurse 05/11/17 Alexsandra Orozco, RN Registered Nurse 08/09/17
--- OUTSIDE RECORDS SUMMARY | 2024-11-06 16:13 | XMS_ITS | Encounter Summary ---
Author Organization [facility] Facility Care Team Providers Care Chainstitch Tunnel Elastic Operator Name Role Phone Fabrizio BINGHAM MD, Manolo Villaseñor Primary Care Provid er Von Long MD Primary Care Provider [phone] Keke Guzman RN Unavailable Unavailab Alexsandra Serra RN Unavailable Dorcas kristailadaniel Dinh II, MD, John Marshall Primary Care [facility] er Alexsandra Orozco RN Unavailable Dorcas Von Branham MD Primary Care Provider [phone] Encounter Details Date Type Department Care Team (Latest Contact Info) Description 04/25/2015 Orders Only [facility] CLINCONV ProviderRoberth MD [address] [place] [id number] Social History Tobacco Use Types Packs/Day Years Used Date Smoking Tobacco: Never Assessed Comments Unknown Sex and Gender Information Value Date Recorded Sex Assigned at Not on file Legal Sex Female 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
--- OUTSIDE RECORDS SUMMARY | 2024-11-06 16:13 | XMS_ITS | Encounter Summary ---
Author Organization [facility] Facility Care Team Providers Care Side Stapler Name Role Phone Von Long MD Primary Care Provider [phone] Keke Guzman RN Unavailable Unavailab Alexsandra Serra RN Unavailable Dorcas vailable Fabrizio BINGHAM MD, Manolo Villaseñor Primary Care Provid er Alexsandra Orozco RN Unavailable Dorcas vailable Von Long MD Primary Care Provider [phone] Encounter Details Date Type Department Care Team (Latest Contact Info) Description 01/24/2017 Orders Only [facility]G CLINCONV ProviderRoberth MD [address] [place], [place] [id number] Social History Tobacco Use Types Packs/Day Years Used Date Smoking Tobacco: Never Assessed Comments Unknown Sex and Gender Information Value Date Recorded Sex Assigned at Not on file Legal Sex Female 1:27 PM RESEARCH ANIMAL FACILITY SUPERVISOR Gender Identity Not on file Sexual Orientation Not on file documented as of this encounter Plan of Treatment Not on file documented as of this encounter Procedures Procedure Name Priority Date/Time Associated Diagnosis Comments SCAN - LABS 01/11/2018 12:00 AM RESEARCH ANIMAL FACILITY SUPERVISOR documented in this encounter Results * SCAN - LABS (01/11/2018 12:00 AM RESEARCH ANIMAL FACILITY SUPERVISOR) Narrative 01/11/2018 12:00 AM RESEARCH ANIMAL FACILITY SUPERVISOR Ordered by an unspecified provider. us Historical Provider Final Res ult documented in this encounter Visit Diagnoses Not on filedocumented in this encounter Care Teams Side Stapler Relationship Specialty Start Date End Date Von Long MD PCP - General 09/21/16 06/19/17 Manolo Dinh II, MD PCP - General 06/20/17 02/08/19 Von Long MD PCP - General 02/09/19 Keke Guzman, RN Registered Nurse 02/10/17 Alexsandra Orozco, RN Registered Nurse 05/11/17 Alexsandra Orozco, RN Registered Nurse 08/09/17 documented as of this encounter
--- OUTSIDE RECORDS SUMMARY | 2024-11-06 16:13 | XMS_ITS | Encounter Summary ---
Author Organization [facility] Facility Care Team Providers Care Hoop Punch And Coiler Operator Name Role Phone Von Long MD Primary Care Provider [phone] Keke Guzman RN Unavailable Unavailab Alexsandra Serra RN Unavailable Dorcas vailable Fabrizio BINGHAM MD, Manolo Villaseñor Primary Care Provid er Alexsandra Orozco RN Unavailable Dorcas vailable Von Long MD Primary Care Provider [phone] Encounter Details Date Type Department Care Team (Latest Contact Info) Description 02/02/2017 Orders Only [facility]G CLINCONV ProviderRoberth MD [address] [place], [place] [phone] Social History Tobacco Use Types Packs/Day Years Used Date Smoking Tobacco: Never Assessed Comments Unknown Sex and Gender Information Value Date Recorded Sex Assigned at Not on file Legal Sex Female 1:27 PM CERTIFIED OPHTHALMIC TECHNICIAN Gender Identity Not on file Sexual Orientation Not on file documented as of this encounter Plan of Treatment Not on file documented as of this encounter Procedures Procedure Name Priority Date/Time Associated Diagnosis Comments SCAN - LABS 01/11/2018 12:00 AM CERTIFIED OPHTHALMIC TECHNICIAN documented in this encounter Results * SCAN - LABS (01/11/2018 12:00 AM CERTIFIED OPHTHALMIC TECHNICIAN) Narrative 01/11/2018 12:00 AM CERTIFIED OPHTHALMIC TECHNICIAN Ordered by an unspecified provider. us Historical Provider Final Res ult documented in this encounter Visit Diagnoses Not on filedocumented in this encounter Care Teams Hoop Punch And Coiler Operator Relationship Specialty Start Date End Date Von Long MD PCP - General 09/21/16 06/19/17 Manolo Dinh II, MD PCP - General 06/20/17 02/08/19 Von Long MD PCP - General 02/09/19 Keke Guzman, RN Registered Nurse 02/10/17 Alexsandra Orozco, RN Registered Nurse 05/11/17 Alexsandra Orozco, RN Registered Nurse 08/09/17 documented as of this encounter
--- OUTSIDE RECORDS SUMMARY | 2024-11-06 16:13 | XMS_ITS | Encounter Summary ---
Author Organization [facility] Facility Care Team Providers Care Screen Printing Equipment Setter Name Role Phone Fabrizio BINGHAM MD, Manolo Villaseñor Primary Care Provid er Von Long MD Primary Care Provider Keke Guzman RN Unavailable Unavailab Alexsandra Serra RN Unavailable Dorcas kristailadaniel Dinh II, MD, John Marshall Primary Care [facility] er Alexsandra Orozco RN Unavailable Dorcas Vno Branham MD Primary Care Provider [phone] Encounter Details Date Type Department Care Team (Latest Contact Info) Description 05/04/2015 Orders Only [facility]G CLINCONV ProviderRoberth MD [address] [place] [address] Social History Tobacco Use Types Packs/Day Years Used Date Smoking Tobacco: Never Assessed Comments Unknown Sex and Gender Information Value Date Recorded Sex Assigned at Not on file Legal Sex 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
--- OUTSIDE RECORDS SUMMARY | 2024-11-06 16:13 | XMS_ITS | Encounter Summary ---
Author Organization [facility] Facility Care Team Providers Care Kier Boiler Name Role Phone Fabrizio BINGHAM MD, Manolo Villaseñor Primary Care [facility] er Von Long MD Primary Care Provider [phone] Keke Guzman RN Unavailable Unavailab Alexsandra Serra RN Unavailable Dorcas kristailadaniel Dinh II, MD, John Marshall Primary Care [facility] er Alexsandra Orozco RN Unavailable Dorcas Von Branham MD Primary Care Provider [phone] Encounter Details Date Type Department Care Team (Latest Contact Info) Description 04/21/2015 Orders Only MMG CLINCONV ProviderRoberth MD [address] [place] [address] Social History Tobacco Use Types Packs/Day Years Used Date Smoking Tobacco: Never Assessed Comments Unknown Sex and Gender Information Value Date Recorded Sex Assigned at Not on file Legal Sex Female 1:27 PM LAUNCH OPERATOR Gender Identity Not on file Sexual [...] on filedocumented in this encounter Care Teams Kier Boiler Relationship Specialty Start Date End Date Manolo [...]
--- OUTSIDE RECORDS SUMMARY | 2024-11-06 16:13 | XMS_ITS | Encounter Summary ---
Author Organization [facility] Facility Care Team Providers Care Naval Aircrewman Mechanical Name Role Phone Fabrizio BINGHAM MD, Manolo Villaseñor Primary Care Provid er Von Long MD Primary Care Provider [phone] Keke Guzman RN Unavailable Unavailab Alexsandra Serra RN Unavailable Dorcas kristailadaniel Dinh II, MD, John Marshall Primary Care [facility] er Alexsandra Orozco RN Unavailable Dorcas Von Branham MD Primary Care Provider [phone] Encounter Details Date Type Department Care Team (Latest Contact Info) Description 02/06/2015 Orders Only [facility]G CLINCONV ProviderRoberth MD [address] [place] [address] Social History Tobacco Use Types Packs/Day Years Used Date Smoking Tobacco: Never Assessed Comments Unknown Sex and Gender Information Value Date Recorded Sex Assigned at Not on file Legal Sex Female 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
--- OUTSIDE RECORDS SUMMARY | 2024-11-06 16:13 | XMS_ITS | Encounter Summary ---
Author Organization [facility] Facility Care Team Providers Care Dent Remover Name Role Phone Fabrizio BINGHAM MD, Manolo Villaseñor Primary Care Provid er Von Long MD Primary Care Provider [phone] Keke Guzman RN Unavailable Unavailab Alexsandra Serra RN Unavailable Docras kristailadaniel Dinh II, MD, John Marshall Primary Care [facility] er Alexsandra Orozco RN Unavailable Dorcas Von Branham MD Primary Care Provider [phone] Encounter Details Date Type Department Care Team (Latest Contact Info) Description 01/14/2016 Orders Only MMG CLINCONV ProviderRoberth MD [address] [place], [place] [phone] Social History Tobacco Use Types Packs/Day Years Used Date Smoking Tobacco: Never Assessed Comments Unknown Sex and Gender Information Value Date Recorded Sex Assigned at Not on file Legal Sex Female 1:27 PM SPORTS THERAPIST Gender Identity Not on file Sexual Orientation Not on file documented as of this encounter Plan of Treatment Not on file documented as of this encounter Procedures Procedure Name Priority Date/Time Associated Diagnosis Comments SCAN - LABS 01/23/2016 12:00 AM SPORTS THERAPIST documented in this encounter Results * SCAN - LABS (01/23/2016 12:00 AM SPORTS THERAPIST) Narrative 01/23/2016 12:00 AM SPORTS THERAPIST Ordered by an unspecified provider. us Historical Provider Final Res ult documented in this encounter Visit Diagnoses Not on filedocumented in this encounter Care Teams Dent Remover Relationship Specialty Start Date End Date Manolo [...]
--- OUTSIDE RECORDS SUMMARY | 2024-11-06 16:13 | XMS_ITS | Clinical Summary ---
Author Organization [facility] Address [address] [place] [address] Care Team Providers Care Aerospace Quality Engineer Name Role Phone Von Long MD Primary Care Provider [phone] Source Comments [facility],non-owned Affiliates and Associated Physician Practices is amultiple site organization consisting of ambulatory clinics and hospital sitesin [place], [place] and [place]. This disclosure is being madepursuant to the Care Everywhere program and may not contain all information available regarding this patient. Last updated 17.[facility] Allergies Active Allergy Reactions Criticality Noted Date Comments Contrast-Iodinated Agents For Ct/Other Skin Reactions,Itching Medium 05/28/2015 Iohexol Itching Medium 05/28/2015 Other reaction(s): Hives Medications * Be aware that medications may not be up to date on this document. Alwaysverify current medications with the patient. milnacipran (SAVELLA) 100 MG tablet Take 100 mg by mouth BID. 5 7 Active montelukast (SINGULAIR) 10 MG tablet 6 7 Active ibuprofen (MOTRIN) 800 MG tablet Take 800 mg by mouth q6h PRN (Pain). 6 Active ALPRAZolam (XANAX) 0.5 MG tablet TK Po prn and HS 7 Active albuterol (PROVENTIL;CHRISTELLE JONATHAN) (5 MG/ML) 0.5% nebulizer solution Inhale 2.5 mg by mouth Active zolpidem (AMBIEN) 10 MG tablet Take 10 mg by mouth Active melatonin 5 MG tablet Take 1 tablet by mouth Active budesonide-formo terol (SYMBICORT) 160-4.5 MCG/ACT inhaler Active HYDROcodone-acet aminophen (NORCO) 10-325 MG tablet Take 1 tablet by mouth every 6 hours as needed for Pain 20 tablet 8 Active amitriptyline (ELAVIL) 50 MG tablet Take 1 tablet by mouth at bedtime 30 tablet 5 9 Active venlafaxine XR 24hr (EFFEXOR XR) 75 MG capsule 150mg 2 9 Active traMADol (ULTRAM) 50 MG tablet TK ONE T PO BID WF PRF MODERATE TO SEVERE PAIN. 2 9 Active furosemide (LASIX) 80 MG tablet 20 mg 2 times daily 5 9 Active vitamin D, ergocalciferol, (DRISDOL) 50527 UNITS capsule 2,000 Units 0 9 Active Cholecalciferol (GNP VITAMIN D MAXIMUM STRENGTH) 2000 units 2,000 Units once daily Active SUMAtriptan (IMITREX) 100 MG tabletIndication s:Intractable chronic migraine without aura and without status migrainosus,Intr actable migraine with aura without status migrainosus One with onset, can repeat in 2 hours, max 2 in 24 hours. 9 tablet 5 9 Active prochlorperazine (COMPAZINE) 10 MG tablet Take 1 tablet by mouth every 8 hours as needed for Nausea/Vomiting 30 tablet 3 9 Active meclizine (ANTIVERT) 25 MG tablet Take 1 tablet by mouth 3 times daily as needed for Dizziness 30 tablet 1 9 Active gabapentin (NEURONTIN) 300 MG capsule TAKE 1 CAPSULE BY MOUTH THREE TIMES DAILY 90 capsule 5 9 Active topiramate (TOPAMAX) 50 MG tabletIndication s:Intractable chronic migraine without aura and without status migrainosus,Intr actable migraine with aura without status migrainosus TAKE 1 TABLET BY MOUTH TWICE DAILY 180 tablet 1 9 Active AIMOVIG 70 MG/ML auto injector pen ADMINISTER 1 ML UNDER THE SKIN EVERY 30 DAYS 1 mL 5 0 Active Active Problems Problem Noted Date Diagnosed [...] daily headache 05/28/2015 Vestibular migraine 05/28/2015 Immunizations Immunization Administration Dates Next Due INFLUENZA VACCINE 11/30/2018 [...] = 0.6 oz pur e alcohol) socially Comments No Sex and Gender Information Value Date Recorded Sex Assigned at Not on file Legal Sex Female 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 Gender Identity Not on file Sexual Orientation Not on file Last Filed Vital Signs Vital Sign Reading Time Taken Comments Blood Pressure 148/95 03/02/2019 12:55 PM FIRE DEPARTMENT MARINE ENGINEER Pulse 76 03/02/2019 12:55 PM FIRE DEPARTMENT MARINE ENGINEER Temperature 37 C (98.6 F) 03/02/2019 12:55 PM FIRE DEPARTMENT MARINE ENGINEER Respiratory Rate 18 07/02/2017 4:29 PM CDT Oxygen Saturation 96% 03/02/2019 12:55 PM FIRE DEPARTMENT MARINE ENGINEER Inhaled Oxygen Concentration - - Weight 119 kg (262 lb 6.4 oz) 03/02/2019 12:55 P M FIRE DEPARTMENT MARINE ENGINEER Height 160 cm (5' 3) 03/02/2019 12:55 PM FIRE DEPARTMENT MARINE ENGINEER Body Mass Index 46.48 03/02/2019 12:55 PM FIRE DEPARTMENT MARINE ENGINEER Plan of Treatment Health Maintenance Due Date Last Done Comments IVONE (AGES 45-75) - COLON CA SCREENING 1968 COLON MONITORING 1968 COLONOSCOPY - COLON CA SCREENING 1968 CT COLONOGRAPHY - COLON CA SCREENING 1968 Colorectal Cancer Screening 1968 FIT - COLON CA SCREENING 1968 FLEX SIG - COLON CA SCREENING 1968 LIPID TESTING 1968 HIV SCREENING 02/25/1983 HEPATITIS C SCREENING 02/21/1986 DTAP/TDAP/TD VACCINES (1 - Tdap) 02/25/1987 HEPATITIS B VACCINE (1 of 3 - 19+ 3-dose series) 02/25/1987 PAP with HPV 02/25/1998 PNEUMOCOCCAL VACCINE 50+ (1 of 1 - PCV) 02/25/2018 ZOSTER VACCINE (1 of 2) 02/25/2018 SCREENING FOR DIABETES 07/02/2020 8, 07/02/2017, 07/02/2017, Additional history exists MAMMOGRAM 02/09/2021 02/09/2019 DEPRESSION SCREENING 02/22/2024 COVID-19 VACCINE ( - season) 2024 INFLUENZA VACCINE (#1) 2024 9, 11/30/2018, 01/10/2018, Additional history exists HIB VACCINE Aged Out No longer eligi [...] - 6.3 % 07/02/2017 1:05 PM CDT [facility] Estimated Average Glucose 123 mg/dL 07/02/2017 1:05 PM T [facility] Comment: HbA1c Interpretation: Treatment target values recommended by ADA and other clinical organizations should be used to evaluate metabolic control in patients. Treatment Target Values: Normal : < 5.7% Pre-diabetes: 5.7-6.4% Diabetes: Equal to or greater than 6.5% Reference: [place] Diabetes Association Standards of Care in Diabetes -2014 In patients 70 years and older consider HbA1c target range of 7.0-7.5% Reference: Diabetes Mellitus in Older People: Position Statement on behalf of the International Association of Gerontology and Geriatrics (IAGG), the Diabetes Working Libertarian for Older People (EDWPOP), and the International Task Force of Experts in Diabetes. Leonid Youssef et al. J [place] Medical Directors Association. 2012 Test results diagnostic [...] 5:26 AM CDT 07/02/2017 5:39 AM CDT us Francisco Javier Valdivia MD LAB - CHEMISTRY ORDERABLES Final Result [address] [phone] from Last 3 Months or Most Recently Relevant to Health Maintenance Insurance MEDICARE MEDICAID - OUT OF STATE MEDICARE [facility] Advance Directives * Full Code (Latest Code Status on File) Date Activated Date Inactivated Comments 07/01/2017 8:02 PM 07/02/2017 9:07 PM Care Teams Aerospace Quality Engineer Relationship Specialty Start Date End Date Von Long MD [address] [place] [id number] PCP - General 04/10/17
--- OUTSIDE RECORDS SUMMARY | 2024-11-06 16:13 | XMS_ITS | Encounter Summary ---
Author Organization [facility] Facility Care Team Providers Care Adventure Therapist Name Role Phone Fabrizio BINGHAM MD, Manolo Villaseñor Primary Care Provid er Von Long MD Primary Care Provider [phone] Keke Guzman RN Unavailable Unavailab Alexsandra Serra RN Unavailable Dorcas kristailadaniel Dinh II, MD, John Marshall Primary Care [facility] er Alexsandra Orozco RN Unavailable Dorcas Von Branham MD Primary Care Provider Encounter Details Date Type Department Care Team (Latest Contact Info) Description 12/04/2011 Orders Only [facility] CLINCONV ProviderRoberth MD [address] [place] [id number] Social History Tobacco Use Types Packs/Day Years Used Date Smoking Tobacco: Never Assessed Comments Unknown Sex and Gender Information Value Date Recorded Sex Assigned at Not on file 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
--- OUTSIDE RECORDS SUMMARY | 2024-11-06 16:14 | XMS_ITS | Clinical Summary ---
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 Pulse 89 02/18/2017 11:24 AM FILTER TANK OPERATOR Temperature - - Respiratory Rate - - Oxygen Saturation - - Inhaled Oxygen Concentration - - Weight 139.3 kg (307 lb) 02/18/2017 11:24 AM FILTER TANK OPERATOR Height 160 cm (5' 3) 08/16/2016 1:47 PM CDT Body Mass Index [...] Screening with HPV 02/25/1998 Mammogram Screening 2008 Pneumococcal Vaccine: 50+ Ye ars (1 of 1 - PCV) 02/25/2018 Zoster Vaccines (1 of 2) 02/25/2018 PHQ-2 (Physician [place]) 02/22/2024 COVID-19 Vaccine (1 - 2023-2 5 season) 2024 Meningococcal B Vaccine Aged Out No l [place] eligible based on patient's age to complete this topic Meningococcal Vaccine Aged Out No [place] eligible based on patient's age to complete this topic RSV Immunizations Under 20 Months Aged Out No longer eligible based on patient's age to complete this topic Insurance MEDICARE MEDICAID [facility] Care Teams Bowling Ball Weigher And Packer Relationship Specialty Start Date End Date Manolo Dinh MD PCP - General 12/04/11
--- OUTSIDE RECORDS SUMMARY | 2024-11-06 16:14 | XMS_ITS | Encounter Summary ---
Author Organization [facility] Facility Care Team Providers Care Dairy Tester Name Role Phone Fabrizio BINGHAM MD, Manolo Villaseñor Primary Care Provid er Von Long MD Primary Care Provider [phone] Keke Guzman RN Unavailable Unavailab Alexsandra Serra RN Unavailable Dorcas kristailadaniel Dinh II, MD, John Marshall Primary Care [facility] er Alexsandra Orozco RN Unavailable Dorcas Von Branham MD Primary Care Provider [phone] Encounter Details Date Type Department Care Team (Latest Contact Info) Description 04/30/2016 Orders Only [facility] CLINCONV ProviderRoberth MD [address] [place] [id number] Social History Tobacco Use Types Packs/Day Years Used Date Smoking Tobacco: Never Assessed Comments Unknown Sex and Gender Information Value Date Recorded Sex Assigned at Not on file 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
[2024-11-06 16:32] LABS: Iron 64 ug/dL (37-170)
[2024-11-06 16:33] LABS: Anion Gap 10 mmol/L (4-12); Blood Urea Nitrogen 27 mg/dL (7-17); Calcium 9.2 mg/dL (8.4-10.2); Carbon Dioxide 23 mmol/L (22-30); Chloride 111 mmol/L (98-107); Estimated Glomerular Filt Rate > 60; Glucose 82 mg/dL (65-110); Potassium 3.5 mmol/L (3.4-5.0); Sodium 144 mmol/L (137-145)
[2024-11-06 16:41] LABS: Percent Iron Saturation 22 % (20-50)
[2024-11-06 17:12] LABS: Ferritin 61.90 ng/mL (11.1-264)
[2024-11-06 17:46] LABS: Vitamin B12 336.0 pg/mL (239-931)
== END 2024-11-06 14:46 | disposition home or self-care (01) ==
PROVIDERS: PCP Emergency Medicine; Visit Provider Internal Medicine Hematology & Oncology
DX: D64.9 Anemia, unspecified (principal)
CPT/HCPCS: 36415; 80048; 82607; 82728; 82746; 83540; 83550; 85027

== ENCOUNTER 2025-01-16 12:20 | Emergency (ER) | payer MEDICARE, OTHER, SELFPAY ==
--- NOTE | 2025-01-16 12:23 | ED.UPPEXIN ---
HPI - Extremity Injury (Upper) General Chief Complaint: Extremity Injury, Upper Stated Complaint: LT Hand 1st Finger Pain Time Seen by Provider: 01/16/25 12:22 Source: patient Mode of arrival: ambulatory Limitations: no limitations History of Present Illness HPI narrative: Paulina is a 54 year old female patient presenting to the clinic today with c/o left index finger pain/swelling x 1 week. She reports she had acrylic nails on and hit her finger causing the nail to rib. She was able to remove the acrylic nail but now she has pain and swelling to the left index finger. Has purulent drainage under the skin of the distal finger. Finger is red and warm to touch. Denies any fevers, chills, body aches. Has not done any treatment. Related Data Home Medications ?Medication ?Instructions ?Recorded ?Confirmed ?Last Taken ?Type losartan 50 mg tablet mg 05/22/22 Unknown History rosuvastatin 10 mg tablet mg 05/22/22 Unknown History topiramate 25 mg tablet mg 05/22/22 Unknown History albuterol sulfate 90 mcg/actuation inhalation 01/16/25 Unknown History aerosol inhaler budesonide-formoterol HFA 160 inhalation 01/16/25 Unknown History mcg-4.5 mcg/actuation aerosol inhaler (Symbicort) hydrochlorothiazide 12.5 mg tablet mg 01/16/25 Unknown History Allergies Allergy/AdvReac Type Severity Reaction Status Date / Time Contrast Media Allergy Intermediate Swelling Uncoded 05/22/22 18:58 Review of Systems Review of Systems: Pertinent positives per HPI. Patient denies any fever, chills, rash, headache, visual changes, dizziness, cough, runny nose, sore throat, shortness of breath, chest pain, palpitations, nausea, vomiting, diarrhea, constipation, abdominal pain, or any urinary issues. [facility] Comments At the time of my signature, I reviewed and agree with the nursing past medical, surgical, social, and family history. There is no relevant family history pertinent to the patient complaint. Exam Narrative: General: Well-developed, obese, in no apparent distress Head: Normocephalic, atraumatic. Cardio: Regular rate and rhythm, s1 and s2 normal, no murmur appreciated. Resp: Clear to auscultation bilaterally, no rhonchi, rales, wheezing or rubs. Musculoskeletal: No deformity, redness and swelling from the mid phalanx to the distal phalanx of the left index finger, green purulent drainage under skin of the distal tip finger, tenderness to palpation and difficulty flexion extension due to pain and swelling.muscle strength strong and equal, peripheral pulse strong, no edema, no cyanosis, normal gait and station Course Course Emergency Course: Portions of this record may have been created with voice recognition software. Level of Care: Express Care Visit Vital Signs Vital signs: Vital Signs Temperature 36.8 C 01/16/25 12:28 Pulse Rate 72 01/16/25 12:28 Respiratory Rate 18 01/16/25 12:28 Blood Pressure 149/83 H 01/16/25 12:28 Pulse Oximetry 100 01/16/25 12:28 Oxygen Delivery Room Air 01/16/25 12:28 Temperature 36.8 C 01/16/25 12:28 Pulse Rate 72 01/16/25 12:28 Respiratory Rate 18 01/16/25 12:28 Blood Pressure 149/83 H 01/16/25 12:28 Pulse Oximetry 100 01/16/25 12:28 Oxygen Delivery Room Air 01/16/25 12:28 Vital signs reviewed Procedures Abscess I/D Left index finger: Date of Incision: 01/16/25 Side (if applicable): left Sedation/analgesia: none Local Anesthetic: none Amount of anesthesia used (mL): 0 Technique: needle aspiration Amount of fluid expressed (mL): 1 Irrigation: No Packing used?: none I&D Results: Pus and Blood Complications: other (None) Abcess I&D Additional Comments: Verbal consent obtained for incision and drainage. Risk and benefits explained and patient voiced understanding. Area was cleansed with betadine. An 18 gauge needle was then used to make a stab incision over the abscess. Green bloody exudate expressed from cavity. Wound culture obtained and sent to lab. Patient tolerated procedure well. MDM - Extremity Injury (Upper) MDM Narrative Medical decision making narrative: At the time of visit patient is resting comfortably on the exam table. Patient appears to be nontoxic. C/o left index finger pain/swelling x 1 week. She reports she had acrylic nails on and hit her finger causing the nail to rib. She was able to remove the acrylic nail but now she has pain and swelling to the left index finger. Has purulent drainage under the skin of the distal finger. Finger is red and warm to touch. Denies any fevers, chills, body aches. Has not done any treatment. On exam patient has redness and swelling from the mid phalanx to the distal phalanx of the left index finger, purulent drainage under skin of the distal finger, tenderness to palpation and difficulty flexion extension due to pain and swelling. Order for wound culture was placed. Offered incision and drainage and patient gives verbal consent. Labs: Wound culture was sent to the lab. Procedure: Verbal consent was obtained for drainage left index finger cellulitis/abscess. Area was cleansed with antiseptic wound wash and Betadine. An 18 gauge needle was then used to drain the abscess. Wound culture was obtained. Patient tolerated fair. Wound was re-cleansed with antiseptic wound wash and triple antibiotic ointment a Band-Aid was applied. Patient is requesting a metal finger splint so she can avoid hitting her finger-this was ordered Plan: I suspect patient has abscess/cellulitis to the left index finger. Drainage was performed in the clinic and wound culture was sent to the lab. We will place patient on clindamycin by mouth and mupirocin cream. Supportive measures were discussed with the patient and they voiced understanding discharge instructions and agrees to treatment plan. Return precautions reviewed Differential Diagnosis Differential diagnosis: Likely finger sprain, dislocation of finger and other (finger fracture) Discharge Plan Discharge Clinical Impression: Cellulitis of finger of left hand Patient Disposition: Home Condition: Stable Instructions: Antibiotic Form, Cellulitis (ED) Additional Instructions: Finger infection was drained in the clinic today using an 18 gauge needle. Wound culture was obtained and sent to the lab. Take clindamycin as prescribed Apply mupirocin cream as prescribed May take Tylenol/Motrin as needed for pain or fever. May perform Epson salt soaks 3 times daily Keep wound clean and dry May wear finger splint as need Watch for signs and symptoms of worsening infection-fever not controlled by Tylenol or Motrin, redness, streaking, swelling, purulent discharge, or increase in pain. Go to the emergency room if you develop any worsening of symptoms/infection Follow up with your PCP in 3 days for a wound check. Patient Language: Mohawk Prescriptions: New clindamycin HCl [Cleocin HCl] 300 mg capsule 300 mg PO TID 7 Days Qty: 21 0RF Rx Instructions: take with 150mg cap to equal 450mg clindamycin HCl [Cleocin HCl] 150 mg capsule 150 mg PO TID 7 Days Qty: 21 0RF Rx Instructions: take with 300mg tab to equal 450mg mupirocin [Centany] 2 % ointment 1 applic topical BID 7 Days Qty: 22 0RF No Action losartan 50 mg tablet topiramate 25 mg tablet rosuvastatin 10 mg tablet albuterol sulfate 90 mcg/actuation HFA aerosol inhaler INHALATION hydrochlorothiazide 12.5 mg tablet budesonide-formoterol [Symbicort] 160-4.5 mcg/actuation HFA aerosol inhaler INHALATION Follow-up/Referrals: Von Long MD [Primary Care Provider, Family Practice] Time of Disposition: 12:43 Quality NIHSS Nursing Documentation ED NIHSS nursing documentation: reviewed/agree
[2025-01-16 12:28] VITALS: BP 149/83; PULSE 72; RESP 18; TEMP 36.8; O2SAT 100
== END 2025-01-16 12:50 | disposition home or self-care (01) ==
PROVIDERS: Emergency Provider Nurse Practitioner Family; PCP Emergency Medicine
DX: L03.012 Cellulitis of left finger (principal); L02.512 Cutaneous abscess of left hand; Z79.899 Other long term (current) drug therapy
CPT/HCPCS: 26010; 87070; 87186; 87205; 99213; G0463